=== PATIENT | male | born 1955 | race African-American/Black ===

== ENCOUNTER 2020-05-10 17:30 | Inpatient (IN) | payer MEDICAID, MEDICARE ==
[2020-05-10 18:17] LABS: VENOUS BLOOD BASE EXCESS 6.7 mmol/L; VENOUS BLOOD HCO3 35.1 mmol/L (20-32); VENOUS BLOOD PH 7.33 (7.30-7.42)
[2020-05-10 18:19] LABS: VENOUS BLOOD PCO2 68.8 mmHg (35-63)
[2020-05-10 18:20] LABS: ABSOLUTE EOSINOPHILS # (AUTO) 0.2 10^3/uL (0.0-0.6); ABSOLUTE LYMPHOCYTES (AUTO) 0.4 10^3/uL (0.5-4.7); ABSOLUTE MONOCYTES (AUTO) 0.6 10^3/uL (0.1-1.4); ABSOLUTE NEUT (AUTO) 5.1 10^3/uL (1.7-8.2); BASOPHILS % (AUTO) 0.6 % (0-2); EOSINOPHILS % (AUTO) 2.5 % (0-6); HEMATOCRIT 41.6 % (37.9-51.0); HEMOGLOBIN 13.2 g/dL (13.5-17.0); MEAN CORPUSCULAR HEMOGLOBIN 29.2 pg (27.0-33.4); MEAN CORPUSCULAR HGB CONC 31.8 g/dL (32.0-36.0); MEAN CORPUSCULAR VOLUME 92 fl (80-97); MONOCYTES % (AUTO) 9.2 % (3-13); PLATELET COUNT 153 10^3/uL (150-450); RED BLOOD COUNT 4.54 10^6/uL (4.35-5.55); RED CELL DISTRIBUTION WIDTH 17.1 % (11.5-14.0); SEGMENTED NEUTROPHILS % (AUTO) 81.7 % (42-78); TOTAL CELLS COUNTED % (AUTO) 100 %; WHITE BLOOD COUNT 6.2 10^3/uL (4.0-10.5)
[2020-05-10 18:27] LABS: INTERNATIONAL RATION (INR) 1.18; PROTHROMBIN TIME 15.2 SEC (11.4-15.4)
--- NOTE | 2020-05-10 18:41 | ER Document Report ---
ED General - General Stated Complaint: FALL/WEAKNESS Time Seen by Provider: 05/10/20 18:23 - HPI Notes: Patient is a 64-year-old male who presents to the emergency department for evaluation. He states that he was in a day bed in his living room, got up to go to the bathroom. He states his legs "just went out from underneath him." He fell to the floor. He denies hitting his head or losing consciousness. He was too weak to get up. He does have some shortness of breath. He sleeps on 3 or 4 pillows regularly. He states that he read somewhere that he should not be mixing medications, so he admits that he has not been reliably taking his medications at all. He really cannot tell me the last time he was taking any of his medications. He denies any chest pain. No fevers. He does not weigh himself regularly, states he has chronic lymphedema in his legs appear to be similar to what they have been in the past. He states he struggled on the floor for some time, sustained blistering and abrasions to his chest wall, abdomen, knees. He is unsure of his last tetanus shot. He has had a minimal cough, nonproductive. - Related Data Allergies/Adverse Reactions: Iodinated Contrast Media [IV Dye, Iodine Containing] Allergy (Verified 08/25/13 22:58) Home Medications: Losartan, Lasix, metoprolol, metformin Past Medical History - General Information source: Patient - Social History Smoking Status: Current Every Day Smoker Frequency of alcohol use: None Family History: Reviewed & Not Pertinent - Past Medical History Cardiac Medical History: Reports: Hx Congestive Heart Failure, Hx Hypertension Pulmonary Medical History: Reports: Hx COPD Endocrine Medical History: Reports: Hx Diabetes Mellitus Type 2 Musculoskeletal Medical History: Reports Other - Lymphedema Past Surgical History: Reports: Hx Abdominal Surgery - Gastric tube placement, Hx Orthopedic Surgery - Resection of right lymphedematous leg Review of Systems - Review of Systems Constitutional: See HPI EENT: No symptoms reported Cardiovascular: No symptoms reported Respiratory: See HPI Gastrointestinal: No symptoms reported Genitourinary: No symptoms reported Musculoskeletal: No symptoms reported Skin: See HPI Neurological/Psychological: No symptoms reported Physical Exam - Vital signs Vitals: Resp Pulse Ox 25 H 68 L 05/10/20 17:38 05/10/20 17:38 - Notes Notes: This is a morbidly obese 64-year-old male, who appears his stated age, in a mild to moderate distress. He is mildly tachypneic with increased work of breathing. Vital signs reviewed, please refer to chart. Head is normocephalic, atraumatic. Pupils equal round, reactive to light. Neck is supple without meningismus. Heart is regular rate and rhythm. Lungs reveal rales and markedly diminished breath sounds in the bases. Abdomen is obese, nontender, normoactive bowel sounds throughout. He has a nonreducible umbilical hernia noted. He has edema noted to the abdominal wall inferiorly. Extremities without cyanosis, clubbing. He has extensive chronic appearing lymphedema changes to bilateral lower extremities. Posterior calves are nontender. Peripheral pulses are equal. Skin is warm and dry. Multiple abrasions noted over bilateral knees. Patient is awake, alert, neurological exam is nonfocal. Course - Re-evaluation Re-evalutation: 05/10/20 18:44 Patient presents to the emergency department for evaluation. I was first made aware of this patient when I was reported a critical value for his PCO2 on VBG. He has a normal pH, I do suspect that this is somewhat chronic. I did, however, have the opportunity to see this patient chest x-ray. He has extensive pul monary edema and cardiomegaly. Given his CO2 retention, markedly increased oxygen need, increased work of breathing, I did think BiPAP is appropriate. This was ordered. I am awaiting electrolytes to determine what and how much of a diuretic is appropriate at this time. He is currently stable, we will continue to monitor. 05/10/20 20:17 Patient is improving on BiPAP. He is currently 98%. His blood pressure is normalized. His respiratory rate is 20. His chest x-ray is consistent with volume overload, his electrolytes are unremarkable, he is given IV Lasix. He does have a positive troponin, but I do strongly suspect this is a leak. However, this patient is diabetic with multiple risk factors. I will discuss this patient with Dr. Fofana, who is on-call for Dr. Hewitt. 05/10/20 20:26 Dr. Fofana will accept this patient on behalf of Dr. Hewitt. 05/10/20 21:58 Patient has diuresed significantly after receiving the Lasix. He is unable to move to urinate appropriately. A condom catheter is not slipping onto the patient at this time. He has urinated frequently, I am concerned about the possibility of worsened skin breakdown given his immobility and severe lymphedema. Greene catheter is ordered to be placed. Still awaiting bed assignment. - Vital Signs Vital signs: Temp Pulse Resp BP Pulse Ox 28 H 139/99 H 98 05/10/20 20:01 05/10/20 20:01 05/10/20 20:01 - Laboratory Result Diagrams: 05/10/20 17:55 05/10/20 18:36 Laboratory results interpreted by me: 05/10/20 05/10/20 05/10/20 17:55 17:55 18:36 Hgb 13.2 L MCHC 31.8 L RDW 17.1 H Lymph % (Auto) 6.0 L Absolute Lymphs (auto) 0.4 L Seg Neutrophils % 81.7 H VBG pCO2 68.8 H* VBG HCO3 35.1 H Carbon Dioxide 33 H Total Bilirubin 1.4 H Direct Bilirubin 0.8 H AST 76 H NT-Pro-B Natriuret Pep 05/10/20 18:36 Hgb MCHC RDW Lymph % (Auto) Absolute Lymphs (auto) Seg Neutrophils % VBG pCO2 VBG HCO3 Carbon Dioxide Total Bilirubin Direct Bilirubin AST NT-Pro-B Natriuret Pep 2130 H - Diagnostic Test Radiology reviewed: Image reviewed, Reports reviewed Radiology results interpreted by me: 05/10/20 20:17 Chest X-Ray 05/10/20 18:08 IMPRESSION: Increased interstitial and alveolar opacities throughout both lungs. Small bilateral pleural effusions. - EKG Interpretation by Me Additional EKG results interpreted by me: 05/10/20 18:45 Sinus mechanism with rate of 91 bpm. Low voltage over the precordium. Left axis deviation. Normal intervals. No acute ST changes concerning for ischemia or infarction. No old studies immediately available for comparison. Discharge - Discharge Clinical Impression: Elevated troponin Acute and chronic respiratory failure Qualifiers: Respiratory failure complication: hypoxia and hypercapnia Qualified Code(s): J96.21 - Acute and chronic respiratory failure with hypoxia Condition: Stable Disposition: ADMITTED INPATIENT Admitting Provider: Marcelina Fofana covering Unit Admitted: [facility]
[2020-05-10] MEDS ORDERED: DIPH/PERTUSS(ACELL)/TETANUS VAC/PF 0.5 ML SYR (>=10YO) IM ONE (18:42)
--- NOTE | 2020-05-10 18:44 | RADIOLOGY REPORT (SQ) ---
EXAM DESCRIPTION: CHEST SINGLE VIEW IMAGES COMPLETED DATE/TIME: 05/10/2020 6:30 pm REASON FOR STUDY: shortness of breath COMPARISON: 08/25/2013 TECHNIQUE: Single frontal radiographic view of the chest acquired. NUMBER OF VIEWS: One view. LIMITATIONS: None. FINDINGS: LUNGS AND PLEURA: No pneumothorax. Increased interstitial and alveolar opacities througho ut both lungs. Small bilateral pleural effusions. MEDIASTINUM AND HILAR STRUCTURES: Stable. HEART AND VASCULAR STRUCTURES: Similar marked cardiomegaly. BONES: No acute findings. HARDWARE: None in the chest. OTHER: No other significant finding. IMPRESSION: Increased interstitial and alveolar opacities throughout both lungs. Small bilateral p leural effusions. TECHNICAL DOCUMENTATION: JOB ID: [id number] [place]-72 2010 [employer]- All Rights Reserved Reading location - IP/workstation name: [email or web address]
[2020-05-10 19:13] LABS: ALBUMIN 3.7 g/dL (3.5-5.0); ALKALINE PHOSPHATASE 67 U/L (38-126); ANION GAP 7 (5-19); ASPARTATE AMINO TRANSFERASE 76 U/L (17-59); BILIRUBIN,DIRECT 0.8 mg/dL (0.0-0.4); BILIRUBIN,TOTAL 1.4 mg/dL (0.2-1.3); BLOOD UREA NITROGEN 14 mg/dL (7-20); CALCIUM 8.9 mg/dL (8.4-10.2); CARBON DIOXIDE 33 mmol/L (22-30); CHLORIDE 101 mmol/L (98-107); GLUCOSE 106 mg/dL (75-110); POTASSIUM 4.2 mmol/L (3.6-5.0); TOTAL PROTEIN 7.4 g/dL (6.3-8.2)
[2020-05-10] MEDS ORDERED: FUROSEMIDE INJ/PF 40 MG/4 ML SDV IV ONE (19:29)
[2020-05-10 19:31] LABS: TROPONIN I 0.145 ng/mL
[2020-05-10] MEDS ORDERED: ENOXAPARIN SODIUM INJ 40 MG/0.4 ML DISP.SYRIN SUBCUT ONE (21:45)
--- NOTE | 2020-05-10 21:55 | EKG REPORT ---
SEVERITY:- ABNORMAL ECG - SINUS RHYTHM PROBABLE LEFT ATRIAL ABNORMALITY LOW VOLTAGE THROUGHOUT BORDERLINE R WAVE PROGRESSION, ANTERIOR LEADS NONSPECIFIC T ABNORMALITIES, LATERAL LEADS : Confirmed by: Marcella Hernandez MD 10-May-2020 21:54:32
[2020-05-10 22:25] LABS: PHOSPHORUS 2.8 mg/dL (2.5-4.5)
[2020-05-10 22:42] LABS: FREE T4 (FREE THYROXINE) 1.82 ng/dL (0.78-2.19)
[2020-05-10 22:50] LABS: APPEARANCE,URINE SLIGHTLY-CLOUDY; BILIRUBIN,URINE NEGATIVE (NEGATIVE); COLOR,URINE YELLOW; GLUCOSE, URINE NEGATIVE (NEGATIVE); KETONES,URINE NEGATIVE (NEGATIVE); PROTEIN,URINE NEGATIVE (NEGATIVE); URINE SPECIFIC GRAVITY 1.015
[2020-05-10 22:56] LABS: THYROID STIMULATING HORMONE 1.01 uIU/mL (0.47-4.68)
[2020-05-10 22:57] LABS: URINE AMPHETAMINES SCREEN NEGATIVE; URINE BARBITURATES SCREEN NEGATIVE; URINE BENZODIAZEPINES SCREEN NEGATIVE; URINE COCAINE SCREEN NEGATIVE; URINE MARIJUANA (THC) SCREEN NEGATIVE; URINE METHADONE SCREEN NEGATIVE; URINE PHENCYCLIDINE SCREEN NEGATIVE
[2020-05-10 23:11] LABS: CREATINE KINASE MB 1.06 ng/mL (<4.55); TROPONIN I 0.164 ng/mL
[2020-05-11 00:50] LABS: ARTERIAL BLOOD BASE EXCESS 8.2 mmol/L; ARTERIAL BLOOD H2CO3 1.84 mmol/L (1.05-1.35); ARTERIAL BLOOD HCO3 35.5 mmol/L (20-24); ARTERIAL BLOOD PH 7.38 (7.35-7.45); ARTERIAL BLOOD PO2 84.9 mmHg (80-100); ARTERIAL BLOOD TOTAL CO2 37.4 mmol/L (23-27)
[2020-05-11 00:52] LABS: ARTERIAL BLOOD FIO2 50%
[2020-05-11 04:37] LABS: ABSOLUTE EOSINOPHILS # (AUTO) 0.1 10^3/uL (0.0-0.6); ABSOLUTE LYMPHOCYTES (AUTO) 0.6 10^3/uL (0.5-4.7); ABSOLUTE MONOCYTES (AUTO) 0.6 10^3/uL (0.1-1.4); ABSOLUTE NEUT (AUTO) 4.2 10^3/uL (1.7-8.2); BASOPHILS % (AUTO) 0.6 % (0-2); EOSINOPHILS % (AUTO) 2.4 % (0-6); HEMATOCRIT 43.5 % (37.9-51.0); HEMOGLOBIN 13.6 g/dL (13.5-17.0); LYMPHOCYTES % (AUTO) 10.2 % (13-45); MEAN CORPUSCULAR HEMOGLOBIN 29.2 pg (27.0-33.4); MEAN CORPUSCULAR HGB CONC 31.2 g/dL (32.0-36.0); MEAN CORPUSCULAR VOLUME 94 fl (80-97); MONOCYTES % (AUTO) 10.3 % (3-13); PLATELET COUNT 140 10^3/uL (150-450); RED BLOOD COUNT 4.65 10^6/uL (4.35-5.55); RED CELL DISTRIBUTION WIDTH 16.9 % (11.5-14.0); SEGMENTED NEUTROPHILS % (AUTO) 76.5 % (42-78); TOTAL CELLS COUNTED % (AUTO) 100 %; WHITE BLOOD COUNT 5.5 10^3/uL (4.0-10.5)
[2020-05-11] MEDS ORDERED: CLOPIDOGREL BISULFATE 300 MG TABLET PO ONE (04:39)
[2020-05-11] MEDS ORDERED: ASPIRIN 81 MG TABLET, CHEWABLE PO ONE (04:39)
[2020-05-11] MEDS ORDERED: METOPROLOL SUCCINATE 25 MG TAB.SR.24H PO SCH (04:45)
[2020-05-11] MEDS ORDERED: METOPROLOL SUCCINATE 25 MG TAB.SR.24H PO ONE (05:00)
[2020-05-11] MEDS ORDERED: ATORVASTATIN CALCIUM 80 MG TABLET PO ONE (05:00)
[2020-05-11 05:05] LABS: ALKALINE PHOSPHATASE 74 U/L (38-126); ANION GAP 7 (5-19); ASPARTATE AMINO TRANSFERASE 71 U/L (17-59); BILIRUBIN,DIRECT 0.9 mg/dL (0.0-0.4); BILIRUBIN,TOTAL 1.5 mg/dL (0.2-1.3); BLOOD UREA NITROGEN 13 mg/dL (7-20); CARBON DIOXIDE 35 mmol/L (22-30); CHLORIDE 102 mmol/L (98-107); CHOLESTEROL 151.56 mg/dL (0-200); GLUCOSE 114 mg/dL (75-110); POTASSIUM 4.3 mmol/L (3.6-5.0); TOTAL PROTEIN 7.7 g/dL (6.3-8.2); TRIGLYCERIDES 83 mg/dL (<150)
[2020-05-11 05:16] LABS: CREATINE KINASE MB 1.05 ng/mL (<4.55); DIRECT LDL 82 mg/dL (<100); TROPONIN I 0.134 ng/mL
[2020-05-11] MEDS: FUROSEMIDE INJ/PF 40 MG/4 ML SDV IV SCH ×2 (05:39→17:37)
[2020-05-11] MEDS ORDERED: ENOXAPARIN SODIUM INJ 40 MG/0.4 ML DISP.SYRIN SUBCUT SCH (10:00)
[2020-05-11 12:57] LABS: CREATINE KINASE MB 1.15 ng/mL (<4.55); TROPONIN I 0.105 ng/mL
--- NOTE | 2020-05-11 13:27 | PDOC H&P ---
History of Present Illness Admission Date/PCP: 05/10/20 20:41 ELIZ WARD History of Present Illness: JORDAN AVALOS is a 64 year old male he came to the emergency room last night for evaluation of fall he fell in his living room while trying to get to the bathroom, his legs just went out from underneath him there was no antecedent chest pain, no loss of consciousness he could not get himself of the floor he was transferred to the emergency room for evaluation. He has chronic huge lymphedema of both lower extremities with areas of scars, fibrosis more so on the right than the left. He normally follows with Dr. Hewitt but it seems that is not compliant with follow-up evaluation, he said whenever he is due for follow-up there is always something that prevent him from going for follow-up evaluation. 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 I saw the patient in emergency room, he is critically ill looking he also smoked cigarette a pack a day Past Medical History Cardiac Medical History: Reports: Congestive Heart Failure, Hypertension Pulmonary Medical History: Reports: Chronic Obstructive Pulmonary Disease (COPD) Endocrine Medical History: Reports: Diabetes Mellitus Type 2 Musculoskeltal Medical History: Reports: Other - Lymphedema Past Surgical History Past Surgical History: Reports: Orthopedic Surgery - Resection of right lymphedematous leg Social History Smoking Status: Current Every Day Smoker Family History Family History: Reviewed & Not Pertinent Parental Family History Reviewed: Yes Children Family History Reviewed: Yes Sibling(s) Family History Reviewed.: Yes Medication/Allergy Home Medications: Metformin HCl [Glucophage] 500 mg PO DAILY 08/25/13 Metoprolol Succinate [Toprol Xl] 25 mg PO BID 08/25/13 Pravastatin Sodium [Pravachol] 40 mg PO DAILY 08/25/13 Sulfamethoxazole/Trimethoprim [Bactrim Ds Tablet] 1 each PO BID 08/25/13 Valsartan/Hydrochlorothiazide [Diovan Hct 160-12.5 mg Tab] 1 each PO BID 08/02 12/12 Allergies/Adverse Reactions: Iodinated Contrast Media [IV Dye, Iodine Containing] Allergy (Verified 08/25/13 22:58) Review of Systems Constitutional: PRESENT: fatigue Eyes: ABSENT: visual disturbances Ears: ABSENT: hearing changes Cardiovascular: PRESENT: dyspnea on exertion Respiratory: ABSENT: cough, hemoptysis Gastrointestinal: PRESENT: abdominal pain Genitourinary: ABSENT: dysuria, hematuria Musculoskeletal: ABSENT: joint swelling Integumentary: ABSENT: rash, wounds Neurological: ABSENT: abnormal gait, abnormal speech, confusion, dizziness, focal weakness, syncope Psychiatric: ABSENT: anxiety, depression, homidical ideation, suicidal ideation Endocrine: ABSENT: cold intolerance, heat intolerance, menstrual abnormalities, polydipsia, polyuria Hematologic/Lymphatic: ABSENT: easy bleeding, easy bruising, lymphadenopathy Physical Exam Vital Signs: Temp Pulse Resp BP Pulse Ox 97.7 F 89 14 104/56 L 94 05/11/20 09:58 05/11/20 12:00 05/11/20 12:01 05/11/20 12:00 05/11/20 12:01 Intake & Output 05/10/20 05/11/20 05/12/20 06:59 06:59 06:59 Weight 199.5 kg General appearance: PRESENT: morbidly obese Eye exam: PRESENT: PERRLA Ear exam: PRESENT: normal external ear exam Neck exam: PRESENT: full ROM Respiratory exam: PRESENT: rales Cardiovascular exam: PRESENT: RRR, +S1, +S2 Vascular exam: PRESENT: normal capillary refill GI/Abdominal exam: PRESENT: normal bowel sounds, soft Rectal exam: PRESENT: deferred Extremities exam: PRESENT: pedal edema, other - Severe bilateral lymphedema of both lower extremities with scars, fibrosis, open wound more on the right than the left side Neurological exam: PRESENT: alert, CN II-XII grossly intact Psychiatric exam: PRESENT: appropriate affect, normal mood Skin exam: PRESENT: dry, intact, warm Results Laboratory Results: 05/11/20 04:25 05/11/20 04:25 05/10/20 05/10/20 05/10/20 17:55 17:55 17:55 WBC 6.2 RBC 4.54 Hgb 13.2 L Hct 41.6 MCV 92 MCH 29.2 MCHC 31.8 L RDW 17.1 H Plt Count 153 Seg Neutrophils % 81.7 H Carbonic Acid HCO3/H2CO3 Ratio ABG pH ABG pCO2 ABG pO2 ABG HCO3 ABG O2 Saturation ABG Base Excess VBG pH 7.33 VBG pCO2 68.8 H* VBG HCO3 35.1 H VBG Base Excess 6.7 FiO2 Sodium Cancelled Potassium Cancelled Chloride Cancelled Carbon Dioxide Cancelled Anion Gap Cancelled BUN Cancelled Creatinine Cancelled Est GFR ( Amer) Cancelled Est GFR (Non-Af Amer) Cancelled Glucose Cancelled Lactic Acid Calcium Cancelled Phosphorus Magnesium Total Bilirubin Cancelled AST Cancelled Alkaline Phosphatase Cancelled Ammonia Total Protein Cancelled Albumin Cancelled Triglycerides Cholesterol LDL Cholesterol Direct VLDL Cholesterol HDL Cholesterol Amylase Lipase TSH Free T4 Urine Color Urine Appearance Urine pH Ur Specific Winn Urine Protein Urine Glucose (UA) Urine Ketones Urine Blood Urine RBC (Auto) 05/10/20 05/10/20 05/10/20 17:55 18:36 18:36 WBC RBC Hgb Hct MCV MCH MCHC RDW Plt Count Seg Neutrophils % Carbonic Acid HCO3/H2CO3 Ratio ABG pH ABG pCO2 ABG pO2 ABG HCO3 ABG O2 Saturation ABG Base Excess VBG pH VBG pCO2 VBG HCO3 VBG Base Excess FiO2 Sodium 140.9 Potassium 4.2 Chloride 101 Carbon Dioxide 33 H Anion Gap 7 BUN 14 Creatinine 1.17 Est GFR ( Amer) > 60 Est GFR (Non-Af Amer) Glucose 106 Lactic Acid 1.8 Calcium 8.9 Phosphorus 2.8 Magnesium 2.6 H Total Bilirubin 1.4 H AST 76 H Alkaline Phosphatase 67 Ammonia Total Protein 7.4 Albumin 3.7 Triglycerides Cholesterol LDL Cholesterol Direct VLDL Cholesterol HDL Cholesterol Amylase 67 Lipase 132.7 TSH Free T4 Urine Color Urine Appearance Urine pH Ur Specific [place] Urine Protein Urine Glucose (UA) Urine Ketones Urine Blood Urine RBC (Auto) 05/10/20 05/10/20 05/10/20 18:36 20:45 22:05 WBC RBC Hgb Hct MCV MCH MCHC RDW Plt Count Seg Neutrophils % Carbonic Acid HCO3/H2CO3 Ratio ABG pH ABG pCO2 ABG pO2 ABG HCO3 ABG O2 Saturation ABG Base Excess VBG pH VBG pCO2 VBG HCO3 VBG Base Excess FiO2 Sodium Potassium Chloride Carbon Dioxide Anion Gap BUN Creatinine Est GFR ( Amer) Est GFR (Non-Af Amer) Glucose Lactic Acid 1.1 Calcium Phosphorus Magnesium Total Bilirubin AST Alkaline Phosphatase Ammonia Total Protein Albumin Triglycerides Cholesterol LDL Cholesterol Direct VLDL Cholesterol HDL Cholesterol Amylase Lipase TSH 1.01 Free T4 1.82 Urine Color YELLOW Urine Appearance SLIGHTLY-CLOUDY Urine pH 5.0 Ur Specific [place] 1.015 Urine Protein NEGATIVE Urine Glucose (UA) NEGATIVE Urine Ketones NEGATIVE Urine Blood NEGATIVE Urine RBC (Auto) 0 05/10/20 05/11/20 05/11/20 22:05 00:30 01:01 WBC RBC Hgb Hct MCV MCH MCHC RDW Plt Count Seg Neutrophils % Carbonic Acid 1.84 H HCO3/H2CO3 Ratio 19:1 ABG pH 7.38 ABG pCO2 61.0 H ABG pO2 84.9 ABG HCO3 35.5 H ABG O2 Saturation 96.0 ABG Base Excess 8.2 VBG pH VBG pCO2 VBG HCO3 VBG Base Excess FiO2 50% Sodium Potassium Chloride Carbon Dioxide Anion Gap BUN Creatinine Est GFR ( Amer) Est GFR (Non-Af Amer) Glucose Lactic Acid 1.9 Calcium Phosphorus Magnesium Total Bilirubin AST Alkaline Phosphatase Ammonia < 8.7 L Total Protein Albumin Triglycerides Cholesterol LDL Cholesterol Direct VLDL Cholesterol HDL Cholesterol Amylase Lipase TSH Free T4 Urine Color Urine Appearance Urine pH Ur Specific [place] Urine Protein Urine Glucose (UA) Urine Ketones Urine Blood Urine RBC (Auto) 05/11/20 05/11/20 04:25 04:25 WBC 5.5 RBC 4.65 Hgb 13.6 Hct 43.5 MCV 94 MCH 29.2 MCHC 31.2 L RDW 16.9 H Plt Count 140 L Seg Neutrophils % 76.5 Carbonic Acid HCO3/H2CO3 Ratio ABG pH ABG pCO2 ABG pO2 ABG HCO3 ABG O2 Saturation ABG Base Excess VBG pH VBG pCO2 VBG HCO3 VBG Base Excess FiO2 Sodium 144.3 Potassium 4.3 Chloride 102 Carbon Dioxide 35 H Anion Gap 7 BUN 13 Creatinine 1.28 H Est GFR ( Amer) > 60 Est GFR (Non-Af Amer) Glucose 114 H Lactic Acid Calcium 9.0 Phosphorus Magnesium Total Bilirubin 1.5 H AST 71 H Alkaline Phosphatase 74 Ammonia Total Protein 7.7 Albumin 4.0 Triglycerides 83 Cholesterol 151.56 LDL Cholesterol Direct 82 VLDL Cholesterol 17.0 HDL Cholesterol 48 Amylase Lipase TSH Free T4 Urine Color Urine Appearance Urine pH Ur Specific [place] Urine Protein Urine Glucose (UA) Urine Ketones Urine Blood Urine RBC (Auto) 05/10/20 05/10/20 05/10/20 17:55 18:36 22:20 Creatine Kinase 711 H CK-MB (CK-2) Troponin I Cancelled 0.145 NT-Pro-B Natriuret Pep 2130 H 05/10/20 05/11/20 05/11/20 22:20 04:25 04:25 Creatine Kinase 642 H CK-MB (CK-2) 1.06 1.05 Troponin I 0.164 0.134 NT-Pro-B Natriuret Pep 05/11/20 05/11/20 12:08 12:08 Creatine Kinase 427 H CK-MB (CK-2) 1.15 Troponin I 0.105 NT-Pro-B Natriuret Pep Impressions: Chest X-Ray 05/10/20 18:08 IMPRESSION: Increased interstitial and alveolar opacities throughout both lungs. Small bilateral pleural effusions. Assessment & Plan - Diagnosis (1) Acute combined systolic (congestive) and diastolic (congestive) heart failure Is this a current diagnosis for this admission?: Yes Plan: The chest x-ray demonstrated severe cardiomegaly with bilateral pulmonary vascular congestion, the B type natruretic peptide, elevated , 0 this is consistent with CHF, most likely he has combined systolic and diastolic heart failure, 2D echo will be ordered, start Entresto, beta-addison (2) Acute non-ST elevation myocardial infarction (NSTEMI) Is this a current diagnosis for this admission?: Yes Plan: He has elevated troponin, in the setting of CHF, it could be acute ND or it cou ld just be a leak from cardiomyopathy, will empirically treat for non-ST ND with dual antiplatelet therapy, Lovenox at 1 mg/kg body weight. He has multiple risk factors for atherosclerotic heart disease including smoking, diabetes, hypertension, sedentary lifestyle (3) Lymphedema of both lower extremities Is this a current diagnosis for this admission?: Yes Plan: He has huge lymphedema, he will need a pump to help with the lymphedema (4) Morbid obesity Is this a current diagnosis for this admission?: Yes - Time Time Spent: Greater than 70 Minutes Medications reviewed and adjusted accordingly: Yes Anticipated Discharge Disposition: Home, Self Care Anticipated Discharge Timeframe: within 72 hours - Inpatient Certification Based on my medical assessment, after consideration of the patient's comorbidities, presenting symptoms, or acuity I expect that the services needed warrant INPATIENT care.: Yes I certify that my determination is in accordance with my understanding of Medicare's requirements for reasonable and necessary INPATIENT services [42 CFR 412.3e].: Yes
[2020-05-11] MEDS ORDERED: GLUCAGON,HUMAN RECOMB 1 MG INJ IM PRN (13:28)
[2020-05-11] MEDS ORDERED: DEXTROSE 50%-WATER 25 GM/50 ML DISP.SYRIN IV PRN ×2 (13:28)
[2020-05-11] MEDS ORDERED: DEXTROSE 40% GEL 15 GM TUBE PO PRN ×2 (13:28)
[2020-05-11] MEDS: INSULIN LISPRO 100 UNIT/ML 3 ML VIAL SUBCUT SCH ×2 (17:33→21:54)
[2020-05-11] MEDS: ENOXAPARIN SODIUM INJ 150 MG/1 ML DISP.SYRIN SUBCUT SCH (17:38)
[2020-05-11] MEDS ORDERED: ATORVASTATIN CALCIUM 80 MG TABLET PO SCH (22:00)
[2020-05-11] MEDS: SACUBITRIL/VALSARTAN 24 MG/26 MG TABLET PO SCH (22:51)
[2020-05-12 06:46] LABS: ABSOLUTE EOSINOPHILS # (AUTO) 0.2 10^3/uL (0.0-0.6); ABSOLUTE LYMPHOCYTES (AUTO) 0.5 10^3/uL (0.5-4.7); ABSOLUTE MONOCYTES (AUTO) 0.6 10^3/uL (0.1-1.4); ABSOLUTE NEUT (AUTO) 4.3 10^3/uL (1.7-8.2); BASOPHILS % (AUTO) 0.3 % (0-2); EOSINOPHILS % (AUTO) 4.1 % (0-6); HEMATOCRIT 39.8 % (37.9-51.0); HEMOGLOBIN 12.5 g/dL (13.5-17.0); LYMPHOCYTES % (AUTO) 9.2 % (13-45); MEAN CORPUSCULAR HGB CONC 31.3 g/dL (32.0-36.0); MEAN CORPUSCULAR VOLUME 93 fl (80-97); MONOCYTES % (AUTO) 10.2 % (3-13); PLATELET COUNT 134 10^3/uL (150-450); RED CELL DISTRIBUTION WIDTH 16.8 % (11.5-14.0); SEGMENTED NEUTROPHILS % (AUTO) 76.2 % (42-78); TOTAL CELLS COUNTED % (AUTO) 100 %; WHITE BLOOD COUNT 5.7 10^3/uL (4.0-10.5)
[2020-05-12] MEDS: FUROSEMIDE INJ/PF 40 MG/4 ML SDV IV SCH ×2 (06:50→18:45)
[2020-05-12] MEDS: ENOXAPARIN SODIUM INJ 150 MG/1 ML DISP.SYRIN SUBCUT SCH ×2 (06:51→18:45)
[2020-05-12] MEDS: INSULIN LISPRO 100 UNIT/ML 3 ML VIAL SUBCUT SCH ×4 (07:53→21:58)
[2020-05-12] MEDS ORDERED: INFLUENZA QUAD (6MOS+) 2020-21 VAC 0.5 ML SYR IM ONE (08:00)
[2020-05-12] MEDS: SACUBITRIL/VALSARTAN 24 MG/26 MG TABLET PO SCH ×2 (09:58→22:04)
[2020-05-12] MEDS: METOPROLOL SUCCINATE 25 MG TAB.SR.24H PO SCH (09:58)
[2020-05-12] MEDS: ASPIRIN 81 MG TABLET, CHEWABLE PO SCH (09:58)
[2020-05-12] MEDS ORDERED: CLOPIDOGREL BISULFATE 75 MG TABLET PO SCH (10:00)
[2020-05-12 12:04] LABS: APPEARANCE,URINE CLEAR; BILIRUBIN,URINE NEGATIVE (NEGATIVE); COLOR,URINE YELLOW; GLUCOSE, URINE NEGATIVE (NEGATIVE); KETONES,URINE NEGATIVE (NEGATIVE); LEUKOCYTE ESTERASE,URINE NEGATIVE (NEGATIVE); NITRITE,URINE NEGATIVE (NEGATIVE); PROTEIN,URINE NEGATIVE (NEGATIVE); URINE SPECIFIC GRAVITY 1.008
--- NOTE | 2020-05-12 20:01 | PDOC PROGRESS REPORT ---
Subjective Progress Note for:: 05/12/20 Subjective:: Interval notes and evaluation were reviewed. Patient denied any associated chest pain, palpitation, diaphoresis, nausea, or vomiting. He reported been on the floor for several hours due to his inability to get up as well as repeated fall at home, twice before presenting to the ED. He alerted EMS on the most recent episode and was brought to the ED. Patient admitted to medication noncompliance and denial about diabetes mellitus although on Metformin prior to admission. He has been noncompliant with office follow up due to reported busy schedule. Reason For Visit: ACUTE RESPIRATORY FAILURE,CHF R/O COVID Physical Exam Vital Signs: Temp Pulse Resp BP Pulse Ox 98.3 F 79 17 126/67 H 100 05/12/20 11:30 05/12/20 15:00 05/12/20 15:00 05/12/20 15:00 05/12/20 15:00 Intake & Output 05/11/20 05/12/20 05/13/20 06:59 06:59 06:59 Intake Total 1050 Output Total 4950 3500 Balance -4950 -2450 Weight 196.4 kg General appearance: PRESENT: morbidly obese Head exam: PRESENT: atraumatic, normocephalic Eye exam: PRESENT: conjunctiva pink. ABSENT: scleral icterus Mouth exam: PRESENT: moist Respiratory exam: PRESENT: clear to auscultation elliot, decreased breath sounds - at lung bases Cardiovascular exam: PRESENT: RRR, +S1, +S2. ABSENT: diastolic murmur, rubs, systolic murmur Vascular exam: ABSENT: pallor GI/Abdominal exam: PRESENT: normal bowel sounds, soft. ABSENT: distended, guarding, mass, organolmegaly, rebound, tenderness Gentrourinary exam: PRESENT: indwelling catheter Extremities exam: PRESENT: pedal edema, other - lowewr extremities lymphedema with right >> left Musculoskeletal exam: PRESENT: deformity - related to multiple joints involvem ent with arthritis Neurological exam: PRESENT: alert, awake, oriented to person, oriented to place, oriented to time, oriented to situation, CN II-XII grossly intact. ABSENT: motor sensory deficit Skin exam: PRESENT: dry, warm, other - multiple chronic scaring on lower extremities Results Laboratory Results: 05/12/20 06:20 05/11/20 04:25 05/12/20 05/12/20 06:20 11:30 WBC 5.7 RBC 4.30 L Hgb 12.5 L Hct 39.8 MCV 93 MCH 29.0 MCHC 31.3 L RDW 16.8 H Plt Count 134 L Seg Neutrophils % 76.2 Urine Color YELLOW Urine Appearance CLEAR Urine pH 7.0 Ur Specific [place] 1.008 Urine Protein NEGATIVE Urine Glucose (UA) NEGATIVE Urine Ketones NEGATIVE Urine Blood LARGE H Urine Nitrite NEGATIVE Ur Leukocyte Esterase NEGATIVE Urine WBC (Auto) 1 Urine RBC (Auto) 15 05/10/20 05/10/20 05/10/20 17:55 18:36 22:20 Creatine Kinase 711 H CK-MB (CK-2) Troponin I Cancelled 0.145 NT-Pro-B Natriuret Pep 2130 H 05/10/20 05/11/20 05/11/20 22:20 04:25 04:25 Creatine Kinase 642 H CK-MB (CK-2) 1.06 1.05 Troponin I 0.164 0.134 NT-Pro-B Natriuret Pep 05/11/20 05/11/20 12:08 12:08 Creatine Kinase 427 H CK-MB (CK-2) 1.15 Troponin I 0.105 NT-Pro-B Natriuret Pep Impressions: Chest X-Ray 05/10/20 18:08 IMPRESSION: Increased interstitial and alveolar opacities throughout both lungs. Small bilateral pleural effusions. Assessment & Plan - Diagnosis (1) Acute and chronic respiratory failure with hypercapnia Is this a current diagnosis for this admission?: Yes Plan: Continue BiPAP support while sleeping to manage his hypoventilation issue due to his morbid obesity. (2) Acute combined systolic (congestive) and diastolic (congestive) heart failure Is this a current diagnosis for this admission?: Yes Plan: More supportive with his chest X ray findings and NT-Pro BNP level. Follow up on echocardiogram findings for further classification. (3) Elevated troponin Is this a current diagnosis for this admission?: Yes Plan: This could be a consequence of his CHF, particularly in view of his normal CKMB fraction. His elevated total CK is probable from muscle injury as a result of his falls and laying on the floor for several hours. In the absence of associated symptoms, less likely due to acute non-STEMI. I will discontinue Lovenox and Plavix use in this patient at this time. Monitor trend and his symptoms. Follow up on echocardiogram findings. (4) Lymphedema of both lower extremities Is this a current diagnosis for this admission?: Yes Plan: Maintain on supportive care. (5) Morbid obesity Is this a current diagnosis for this admission?: Yes Plan: Continue current dietary and calorie restrictions management. - Time Time Spent with patient: 25-34 minutes Level of Care: IMCU Medications reviewed and adjusted accordingly: Yes Anticipated discharge: Home with Homehealth Anticipated DC Timeframe: within 72 hours - Inpatient Certification Based on my medical assessment, after consideration of the patient's comorbidities, presenting symptoms, or acuity I expect that the services needed warrant INPATIENT care.: Yes I certify that my determination is in accordance with my understanding of Medicare's requirements for reasonable and necessary INPATIENT services [42 CFR 412.3e].: Yes Medical Necessity: Significant Comorbidiites Make Outpatient Treatment Too Risky, Need Close Monitoring Due to Risk of Patient Decompensation, Need For Continuous Telemetry Monitoring, Risk of Complication if Not Cared For in Hospital, Risk of Diagnosis Which Will Require Inpatient Eval/Care/Monitoring 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
--- NOTE | 2020-05-12 21:01 | XCELERA REPORT ---
[address] [address] Transthoracic Echocardiogram Report Name: JORDAN AVALOS Age: 64 yrs Gender: Male : 1955 Patient Status: Inpatient Patient Location: [address] [place] [address] Study Date: 05/12/2020 09:04 AM Procedure: A complete two-dimensional transthoracic echocardiogram was performed (2D, M-mode, spectral and color flow Doppler). The study was technically difficult with many images being suboptimal in quality. Reason For Study: ? [place] Ordering Physician: GALINA FOX Performed By: Diana Rosenbaum Interpretation Summary LEFT VENTRICLE: LV Systolic function: LVEF is felt to be severely depressed. Best estimate is approximately LVEF is 35 %. LV Diastolic Function: Grade II diastolic dysfunction noted. Wall motion: diffuse hypokinesia noted. Regional wall motion cannot be accurately commented upon. Left ventricular chamber size: mildly dilated. Left ventricular wall thickness: is increased indicative of Mild LVH. RIGHT VENTRICLE: RV systolic function: is felt to be within normal limit. Right Ventricle Size: mildly dilated. LEFT ATRIUM size: moderately dilated. RIGHT ATRIUM size: moderately dilated. INTER ATRIAL SEPTUM: No definite atrial septal defect noted however a small PFO could be missed. AORTIC ROOT: seems to be within normal limits. ASCENDING AORTA: is not well visualized. INFERIOR VENA CAVA: was not well visualized. VALVES: MITRAL VALVE: Leaflets are mildly thickened. Mobility seems to be within normal limits. Mitral Regurgitation: mild mitral regurgitation is noted. Mitral Stenosis: No mitral stenosis noted. Mitral valve prolapse: none noted. AORTIC VALVE: seems to be trileaflet with mild thickening but adequate excursion. Aortic stenosis: No aortic stenosis noted. Aortic regurgitation: trace aortic incompetence noted. TRICUSPID VALVE: mobility and structures within normal limit. Tricuspid stenosis: no tricuspid stenosis noted. Tricuspid regurgitation: mild tricuspid regurgitation noted. Estimated RVSP: best estimated at approximately 45 mmHg consistent with mild to moderate pulmonary hypertension . PULMONARY VALVE: was not well visualized but no significant abnormalities suspected. Pulmonary stenosis: no pulmonary stenosis noted. Pulmonary regurgitation: no significant pulmonary regurgitation noted. MASSES AND THROMBUS: No definite intracardiac thrombus or masses are noted. PERICARDIUM: No pericardial effusion was noted. IMPRESSION: 1. Severely depressed LVEF best estimate being approximately 35%. 2. Mild LVH noted. 3. Grade II [mild] Diastolic Dysfunction noted. 4. Mild mitral, mild tricuspid and trace aortic regurgitation noted. 5. Four chamber dilatation noted as described above. 6. Mild to moderate pulmonary hypertension noted. 7. May consider further evaluation with cardiac CTA, cardiac MRI et cetera if clinically indicated. MMode/2D Measurements & Calculations RVDd: 3.2 cm LVIDd: 6.2 cm FS: 9.3 % Ao root diam: 3.2 cm IVSd: 1.5 cm LVIDs: 5.6 cm EDV(Teich): 194.3 ml Ao root area: 8.2 cm2 LVPWd: 1.4 cm ESV(Teich): 155.6 ml EF(Teich): 19.9 % Doppler Measurements & Calculations MV E max omar: MV dec slope: Ao V2 max: LV V1 max P.1 cm/sec 126.2 cm/sec 3.8 mmHg MV A max omar: 530.6 cm/sec2 Ao max P.4 mmHgLV V1 max: 84.8 cm/sec MV dec time: 0.14 sec 97.2 cm/sec MV E/A: 0.86 PA V2 max: PI end-d omar: TR max omar: 169.5 cm/sec 98.1 cm/sec 329.5 cm/sec PA max PG: TR max P.6 mmHg 43.4 mmHg : GALINA FOX Shyamal
[2020-05-12] MEDS: HEPARIN SOD (PORCINE) 5,000 UNIT/ML 1 ML VIAL SUBCUT SCH (22:04)
[2020-05-12] MEDS: ATORVASTATIN CALCIUM 20 MG TABLET PO SCH (22:04)
[2020-05-13] MEDS: PANTOPRAZOLE SODIUM 40 MG TABLET.DR PO SCH (05:24)
[2020-05-13] MEDS: FUROSEMIDE INJ/PF 40 MG/4 ML SDV IV SCH ×2 (05:24→18:54)
[2020-05-13] MEDS: HEPARIN SOD (PORCINE) 5,000 UNIT/ML 1 ML VIAL SUBCUT SCH ×3 (05:29→22:04)
[2020-05-13 06:33] LABS: ABSOLUTE EOSINOPHILS # (AUTO) 0.3 10^3/uL (0.0-0.6); ABSOLUTE LYMPHOCYTES (AUTO) 0.6 10^3/uL (0.5-4.7); ABSOLUTE MONOCYTES (AUTO) 0.6 10^3/uL (0.1-1.4); ABSOLUTE NEUT (AUTO) 3.7 10^3/uL (1.7-8.2); BASOPHILS % (AUTO) 0.7 % (0-2); EOSINOPHILS % (AUTO) 5.3 % (0-6); HEMATOCRIT 40.7 % (37.9-51.0); HEMOGLOBIN 12.7 g/dL (13.5-17.0); LYMPHOCYTES % (AUTO) 10.9 % (13-45); MEAN CORPUSCULAR HEMOGLOBIN 28.6 pg (27.0-33.4); MEAN CORPUSCULAR HGB CONC 31.2 g/dL (32.0-36.0); MEAN CORPUSCULAR VOLUME 92 fl (80-97); MONOCYTES % (AUTO) 11.5 % (3-13); PLATELET COUNT 135 10^3/uL (150-450); RED BLOOD COUNT 4.44 10^6/uL (4.35-5.55); RED CELL DISTRIBUTION WIDTH 16.6 % (11.5-14.0); SEGMENTED NEUTROPHILS % (AUTO) 71.6 % (42-78); TOTAL CELLS COUNTED % (AUTO) 100 %; WHITE BLOOD COUNT 5.2 10^3/uL (4.0-10.5)
[2020-05-13 06:55] LABS: ALBUMIN 3.1 g/dL (3.5-5.0); ALKALINE PHOSPHATASE 59 U/L (38-126); ANION GAP 5 (5-19); ASPARTATE AMINO TRANSFERASE 36 U/L (17-59); BILIRUBIN,DIRECT 0.5 mg/dL (0.0-0.4); BILIRUBIN,TOTAL 1.2 mg/dL (0.2-1.3); BLOOD UREA NITROGEN 16 mg/dL (7-20); CALCIUM 8.8 mg/dL (8.4-10.2); CARBON DIOXIDE 37 mmol/L (22-30); CHLORIDE 96 mmol/L (98-107); CREATINE KINASE 125 U/L (55-170); GLUCOSE 99 mg/dL (75-110); POTASSIUM 3.8 mmol/L (3.6-5.0); TOTAL PROTEIN 6.4 g/dL (6.3-8.2)
[2020-05-13 07:22] LABS: CREATINE KINASE MB 0.66 ng/mL (<4.55); TROPONIN I 0.063 ng/mL
[2020-05-13] MEDS: INSULIN LISPRO 100 UNIT/ML 3 ML VIAL SUBCUT SCH ×4 (08:41→22:04)
[2020-05-13 09:39] LABS: APPEARANCE,URINE CLEAR; BILIRUBIN,URINE NEGATIVE (NEGATIVE); COLOR,URINE COLORLESS; GLUCOSE, URINE NEGATIVE (NEGATIVE); KETONES,URINE NEGATIVE (NEGATIVE); LEUKOCYTE ESTERASE,URINE NEGATIVE (NEGATIVE); NITRITE,URINE NEGATIVE (NEGATIVE); PROTEIN,URINE NEGATIVE (NEGATIVE); URINE SPECIFIC GRAVITY 1.004; UROBILINOGEN,URINE NEGATIVE mg/dL (<2.0)
[2020-05-13] MEDS: ASPIRIN 81 MG TABLET, CHEWABLE PO SCH (09:56)
[2020-05-13] MEDS: SACUBITRIL/VALSARTAN 24 MG/26 MG TABLET PO SCH ×2 (09:57→22:04)
[2020-05-13] MEDS: METOPROLOL SUCCINATE 25 MG TAB.SR.24H PO SCH (09:57)
[2020-05-13] MEDS: ATORVASTATIN CALCIUM 20 MG TABLET PO SCH (22:04)
[2020-05-14] MEDS: PANTOPRAZOLE SODIUM 40 MG TABLET.DR PO SCH (05:40)
[2020-05-14] MEDS: FUROSEMIDE INJ/PF 40 MG/4 ML SDV IV SCH ×2 (05:40→17:43)
[2020-05-14] MEDS: HEPARIN SOD (PORCINE) 5,000 UNIT/ML 1 ML VIAL SUBCUT SCH ×3 (05:40→22:09)
[2020-05-14 07:01] LABS: APPEARANCE,URINE SLIGHTLY-CLOUDY; BILIRUBIN,URINE NEGATIVE (NEGATIVE); COLOR,URINE YELLOW; GLUCOSE, URINE NEGATIVE (NEGATIVE); KETONES,URINE NEGATIVE (NEGATIVE); LEUKOCYTE ESTERASE,URINE SMALL (NEGATIVE); NITRITE,URINE NEGATIVE (NEGATIVE); PROTEIN,URINE 100 mg/dL (NEGATIVE); URINE SPECIFIC GRAVITY 1.012; UROBILINOGEN,URINE NEGATIVE mg/dL (<2.0)
[2020-05-14 07:43] LABS: ANION GAP 7 (5-19); BLOOD UREA NITROGEN 16 mg/dL (7-20); CALCIUM 9.5 mg/dL (8.4-10.2); CARBON DIOXIDE 38 mmol/L (22-30); CHLORIDE 93 mmol/L (98-107); GLUCOSE 108 mg/dL (75-110)
[2020-05-14 07:46] LABS: HEMATOCRIT 43.1 % (37.9-51.0); HEMOGLOBIN 13.9 g/dL (13.5-17.0); MEAN CORPUSCULAR HEMOGLOBIN 29.1 pg (27.0-33.4); MEAN CORPUSCULAR HGB CONC 32.3 g/dL (32.0-36.0); MEAN CORPUSCULAR VOLUME 90 fl (80-97); PLATELET COUNT 150 10^3/uL (150-450); RED BLOOD COUNT 4.79 10^6/uL (4.35-5.55); RED CELL DISTRIBUTION WIDTH 16.5 % (11.5-14.0)
[2020-05-14] MEDS: INSULIN LISPRO 100 UNIT/ML 3 ML VIAL SUBCUT SCH ×4 (08:08→22:09)
--- NOTE | 2020-05-14 09:41 | PDOC PROGRESS REPORT ---
Subjective Progress Note for:: 05/13/20 Subjective:: Patient denied chest pain, palpitation, or difficulty with breathing. No abdominal pain, nausea, or vomiting. He remain on BiPAP support while sleeping. No fever or chills. Reason For Visit: ACUTE RESPIRATORY FAILURE,CHF R/O COVID Physical Exam Vital Signs: Temp Pulse Resp BP Pulse Ox 97.9 F 82 13 131/72 H 87 L 05/13/20 07:44 05/13/20 07:44 05/13/20 07:44 05/13/20 07:44 05/13/20 09:31 Intake & Output 05/12/20 05/13/20 05/14/20 06:59 06:59 06:59 Intake Total 1590 Output Total 4950 8900 Balance -4950 -7310 Weight 196.4 kg 190.7 kg Physical Exam: General appearance: PRESENT: morbidly obese Head exam: PRESENT: atraumatic, normocephalic Eye exam: PRESENT: conjunctiva pink. ABSENT: pallor, sclera icterus Mouth exam: PRESENT: moist Respiratory exam: PRESENT: clear to auscultation elliot, decreased breath sounds - at lung bases Cardiovascular exam: PRESENT: RRR, +S1, +S2. ABSENT: diastolic murmur, rubs, systolic murmur GI/Abdominal exam: PRESENT: normal bowel sounds, soft. ABSENT: distended, gu arding, mass, organomegaly, rebound, tenderness Genitourinary exam: PRESENT: indwelling catheter Extremities exam: PRESENT: pedal edema, other - lower extremities lymphedema with right >> left Musculoskeletal exam: PRESENT: deformity - related to multiple joints involvement with arthritis Neurological exam: PRESENT: alert, awake, oriented to person, oriented to place, oriented to time, oriented to situation, CN II-XII grossly intact. ABSENT: motor sensory deficit Skin exam: PRESENT: dry, warm, other - multiple chronic scaring on lower extremities Results Laboratory Results: 05/13/20 05:51 05/13/20 05:51 05/12/20 05/13/20 05/13/20 11:30 05:51 05:51 WBC 5.2 RBC 4.44 Hgb 12.7 L Hct 40.7 MCV 92 MCH 28.6 MCHC 31.2 L RDW 16.6 H Plt Count 135 L Seg Neutrophils % 71.6 Sodium 138.0 Potassium 3.8 Chloride 96 L Carbon Dioxide 37 H Anion Gap 5 BUN 16 Creatinine 1.11 Est GFR ( Amer) > 60 Glucose 99 Calcium 8.8 Total Bilirubin 1.2 AST 36 Alkaline Phosphatase 59 Total Protein 6.4 Albumin 3.1 L Urine Color YELLOW Urine Appearance CLEAR Urine pH 7.0 Ur Specific [place] 1.008 Urine Protein NEGATIVE Urine Glucose (UA) NEGATIVE Urine Ketones NEGATIVE Urine Blood LARGE H Urine Nitrite NEGATIVE Ur Leukocyte Esterase NEGATIVE Urine WBC (Auto) 1 Urine RBC (Auto) 15 05/13/20 09:00 WBC RBC Hgb Hct MCV MCH MCHC RDW Plt Count Seg Neutrophils % Sodium Potassium Chloride Carbon Dioxide Anion Gap BUN Creatinine Est GFR ( Amer) Glucose Calcium Total Bilirubin AST Alkaline Phosphatase Total Protein Albumin Urine Color COLORLESS Urine Appearance CLEAR Urine pH 8.0 Ur Specific [place] 1.004 Urine Protein NEGATIVE Urine Glucose (UA) NEGATIVE Urine Ketones NEGATIVE Urine Blood LARGE H Urine Nitrite NEGATIVE Ur Leukocyte Esterase NEGATIVE Urine WBC (Auto) 1 Urine RBC (Auto) 27 05/10/20 05/10/20 05/10/20 17:55 18:36 22:20 Creatine Kinase 711 H CK-MB (CK-2) Troponin I Cancelled 0.145 NT-Pro-B Natriuret Pep 2130 H 05/10/20 05/11/20 05/11/20 22:20 04:25 04:25 Creatine Kinase 642 H CK-MB (CK-2) 1.06 1.05 Troponin I 0.164 0.134 NT-Pro-B Natriuret Pep 05/11/20 05/11/20 05/13/20 12:08 12:08 05:51 Creatine Kinase 427 H 125 CK-MB (CK-2) 1.15 Troponin I 0.105 NT-Pro-B Natriuret Pep 05/13/20 05:51 Creatine Kinase CK-MB (CK-2) 0.66 Troponin I 0.063 NT-Pro-B Natriuret Pep Impressions: Chest X-Ray 05/10/20 18:08 IMPRESSION: Increased interstitial and alveolar opacities throughout both lungs. Small bilateral pleural effusions. Assessment & Plan - Diagnosis (1) Acute and chronic respiratory failure with hypercapnia Is this a current diagnosis for this admission?: Yes (2) Acute combined systolic (congestive) and diastolic (congestive) heart failure Is this a current diagnosis for this admission?: Yes (3) Elevated troponin Is this a current diagnosis for this admission?: Yes (4) Lymphedema of both lower extremities Is this a current diagnosis for this admission?: Yes (5) Morbid obesity Is this a current diagnosis for this admission?: Yes - Time Time Spent with patient: 25-34 minutes Level of Care: IMCU Medications reviewed and adjusted accordingly: Yes Anticipated discharge: Home with Homehealth Anticipated DC Timeframe: within 72 hours - Inpatient Certification Based on my medical assessment, after consideration of the patient's comorbidities, presenting symptoms, or acuity I expect that the services needed warrant INPATIENT care.: Yes I certify that my determination is in accordance with my understanding of Medic are's requirements for reasonable and necessary INPATIENT services [42 CFR 412.3e].: Yes Medical Necessity: Significant Comorbidiites Make Outpatient Treatment Too Risky, Need Close Monitoring Due to Risk of Patient Decompensation, Need For Continuous Telemetry Monitoring, Risk of Complication if Not Cared For in Hospital, Risk of Diagnosis Which Will Require Inpatient Eval/Care/Monitoring 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 Obtain BMP, NT-Pro BNP, and CBC with diff in AM.
[2020-05-14] MEDS: SACUBITRIL/VALSARTAN 24 MG/26 MG TABLET PO SCH ×2 (10:05→22:08)
[2020-05-14] MEDS: ASPIRIN 81 MG TABLET, CHEWABLE PO SCH (10:05)
[2020-05-14] MEDS: METOPROLOL SUCCINATE 25 MG TAB.SR.24H PO SCH (10:05)
[2020-05-14] MEDS: ATORVASTATIN CALCIUM 20 MG TABLET PO SCH (22:08)
[2020-05-15] MEDS: PANTOPRAZOLE SODIUM 40 MG TABLET.DR PO SCH (05:34)
[2020-05-15] MEDS: FUROSEMIDE INJ/PF 40 MG/4 ML SDV IV SCH ×2 (05:34→17:37)
[2020-05-15] MEDS: HEPARIN SOD (PORCINE) 5,000 UNIT/ML 1 ML VIAL SUBCUT SCH ×3 (05:35→21:23)
[2020-05-15] MEDS: INSULIN LISPRO 100 UNIT/ML 3 ML VIAL SUBCUT SCH ×4 (08:20→21:24)
[2020-05-15] MEDS: SACUBITRIL/VALSARTAN 24 MG/26 MG TABLET PO SCH ×2 (09:59→21:23)
[2020-05-15] MEDS: METOPROLOL SUCCINATE 25 MG TAB.SR.24H PO SCH (09:59)
[2020-05-15] MEDS: ASPIRIN 81 MG TABLET, CHEWABLE PO SCH (09:59)
--- NOTE | 2020-05-15 18:00 | PDOC PROGRESS REPORT ---
Subjective Progress Note for:: 05/14/20 Subjective:: Patient reported improvement in his breathing. No chest pain. No abdominal pain, nausea, or vomiting. No fever or chills. Reason For Visit: ACUTE RESPIRATORY FAILURE,CHF R/O COVID Physical Exam Vital Signs: Temp Pulse Resp BP Pulse Ox 97.3 F 84 15 126/72 H 92 05/14/20 11:12 05/14/20 14:00 05/14/20 11:12 05/14/20 11:12 05/14/20 11:12 Intake & Output 05/13/20 05/14/20 05/15/20 06:59 06:59 06:59 Intake Total 1590 1049 1513 Output Total 8900 8925 1505 Balance -0189 -3235 8 Weight 190.7 kg 168.8 kg Physical Exam: General appearance: PRESENT: morbidly obese Head exam: PRESENT: atraumatic, normocephalic Eye exam: PRESENT: conjunctiva pink. ABSENT: pallor, sclera icterus Mouth exam: PRESENT: moist Respiratory exam: PRESENT: clear to auscultation elliot, decreased breath sounds - at lung bases Cardiovascular exam: PRESENT: RRR, +S1, +S2. ABSENT: diastolic murmur, rubs, systolic murmur GI/Abdominal exam: PRESENT: normal bowel sounds, soft. ABSENT: distended, guarding, mass, organomegaly, rebound, tenderness Genitourinary exam: PRESENT: indwelling catheter Extremities exam: PRESENT: pedal edema, other - lower extremities lymphedema with right >> left Musculoskeletal exam: PRESENT: deformity - related to multiple joints involvement with arthritis Neurological exam: PRESENT: alert, awake, oriented to person, oriented to place, oriented to time, oriented to situation, CN II-XII grossly intact. ABSENT: motor sensory deficit Skin exam: PRESENT: dry, warm, other - multiple chronic scaring on lower extremities Results Laboratory Results: 05/14/20 06:35 05/14/20 06:35 05/14/20 05/14/20 05/14/20 05:43 06:35 06:35 WBC 5.0 RBC 4.79 Hgb 13.9 Hct 43.1 MCV 90 MCH 29.1 MCHC 32.3 RDW 16.5 H Plt Count 150 Sodium 137.7 Potassium 4.0 Chloride 93 L Carbon Dioxide 38 H Anion Gap 7 BUN 16 Creatinine 1.02 Est GFR ( Amer) > 60 Glucose 108 Calcium 9.5 Urine Color YELLOW Urine Appearance SLIGHTLY-CLOUDY Urine pH 9.0 Ur Specific [place] 1.012 Urine Protein 100 H Urine Glucose (UA) NEGATIVE Urine Ketones NEGATIVE Urine Blood LARGE H Urine Nitrite NEGATIVE Ur Leukocyte Esterase SMALL H Urine WBC (Auto) 27 Urine RBC (Auto) >182 05/10/20 20:45 Clean Catch Midstream Urine Culture - Final Proteus Mirabilis Staph Coagulase Negative 05/10/20 05/10/20 05/10/20 17:55 18:36 22:20 Creatine Kinase 711 H CK-MB (CK-2) Troponin I Cancelled 0.145 NT-Pro-B Natriuret Pep 2130 H 05/10/20 05/11/20 05/11/20 22:20 04:25 04:25 Creatine Kinase 642 H CK-MB (CK-2) 1.06 1.05 Troponin I 0.164 0.134 NT-Pro-B Natriuret Pep 05/11/20 05/11/20 05/13/20 12:08 12:08 05:51 Creatine Kinase 427 H 125 CK-MB (CK-2) 1.15 Troponin I 0.105 NT-Pro-B Natriuret Pep 05/13/20 05/14/20 05:51 06:35 Creatine Kinase CK-MB (CK-2) 0.66 Troponin I 0.063 NT-Pro-B Natriuret Pep 1220 H Impressions: Chest X-Ray 05/10/20 18:08 IMPRESSION: Increased interstitial and alveolar opacities throughout both lungs. Small bilateral pleural effusions. Assessment & Plan - Diagnosis (1) Acute and chronic respiratory failure with hypercapnia Is this a current diagnosis for this admission?: Yes (2) Acute combined systolic (congestive) and diastolic (congestive) heart failure Is this a current diagnosis for this admission?: Yes (3) Elevated troponin Is this a current diagnosis for this admission?: Yes (4) Lymphedema of both lower extremities Is this a current diagnosis for this admission?: Yes (5) Morbid obesity Is this a current diagnosis for this admission?: Yes - Time Time Spent with patient: 25-34 minutes Level of Care: IMCU Medications reviewed and adjusted accordingly: Yes Anticipated discharge: Home with Homehealth Anticipated DC Timeframe: within 72 hours - Inpatient Certification Based on my medical assessment, after consideration of the patient's comorbidities, presenting symptoms, or acuity I expect that the services needed warrant INPATIENT care.: Yes I certify that my determination is in accordance with my understanding of Medicare's requirements for reasonable and necessary INPATIENT services [42 CFR 412.3e].: Yes Medical Necessity: Significant Comorbidiites Make Outpatient Treatment Too Risky, Need Close Monitoring Due to Risk of Patient Decompensation, Need For Continuous Telemetry Monitoring, Risk of Complication if Not Cared For in Hospital, Risk of Diagnosis Which Will Require Inpatient Eval/Care/Monitoring Post Hospital Care: D/C Litigation Paralegal 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
--- NOTE | 2020-05-15 18:10 | PDOC PROGRESS REPORT ---
Subjective Progress Note for:: 05/15/20 Subjective:: No chest pain or difficulty with breathing. No abdominal pain, nausea, or vomiting. No fever or chills. Reason For Visit: ACUTE RESPIRATORY FAILURE,CHF R/O COVID Physical Exam Vital Signs: Temp Pulse Resp BP Pulse Ox 97.9 F 91 16 113/68 99 05/15/20 12:57 05/15/20 14:00 05/15/20 12:57 05/15/20 12:57 05/15/20 16:00 Intake & Output 05/14/20 05/15/20 05/16/20 06:59 06:59 06:59 Intake Total 1049 2513 1404 Output Total 8925 5505 1720 Balance -9483 -1672 -316 Weight 168.8 kg 173.6 kg Physical Exam: General appearance: PRESENT: morbidly obese Head exam: PRESENT: atraumatic, normocephalic Eye exam: PRESENT: conjunctiva pink. ABSENT: pallor, sclera icterus Mouth exam: PRESENT: moist Respiratory exam: PRESENT: clear to auscultation elliot, decreased breath sounds - at lung bases Cardiovascular exam: PRESENT: RRR, +S1, +S2. ABSENT: diastolic murmur, rubs, systolic murmur GI/Abdominal exam: PRESENT: normal bowel sounds, soft. ABSENT: distended, guarding, mass, organomegaly, rebound, tenderness Genitourinary exam: PRESENT: indwelling catheter Extremities exam: PRESENT: pedal edema, other - lower extremities lymphedema with right >> left Musculoskeletal exam: PRESENT: deformity - related to multiple joints involvement with arthritis Neurological exam: PRESENT: alert, awake, oriented to person, oriented to place, oriented to time, oriented to situation, CN II-XII grossly intact. ABSENT: motor sensory deficit Skin exam: PRESENT: dry, warm, other - multiple chronic scaring on lower extremities Results Laboratory Results: 05/14/20 06:35 05/14/20 06:35 05/10/20 05/10/20 05/10/20 17:55 18:36 22:20 Creatine Kinase 711 H CK-MB (CK-2) Troponin I Cancelled 0.145 NT-Pro-B Natriuret Pep 2130 H 05/10/20 05/11/20 05/11/20 22:20 04:25 04:25 Creatine Kinase 642 H CK-MB (CK-2) 1.06 1.05 Troponin I 0.164 0.134 NT-Pro-B Natriuret Pep 05/11/20 05/11/20 05/13/20 12:08 12:08 05:51 Creatine Kinase 427 H 125 CK-MB (CK-2) 1.15 Troponin I 0.105 NT-Pro-B Natriuret Pep 05/13/20 05/14/20 05:51 06:35 Creatine Kinase CK-MB (CK-2) 0.66 Troponin I 0.063 NT-Pro-B Natriuret Pep 1220 H Impressions: Chest X-Ray 05/10/20 18:08 IMPRESSION: Increased interstitial and alveolar opacities throughout both lungs. Small bilateral pleural effusions. Assessment & Plan - Diagnosis (1) Acute and chronic respiratory failure with hypercapnia Is this a current diagnosis for this admission?: Yes (2) Acute combined systolic (congestive) and diastolic (congestive) heart failure Is this a current diagnosis for this admission?: Yes (3) Elevated troponin Is this a current diagnosis for this admission?: Yes (4) Lymphedema of both lower extremities Is this a current diagnosis for this admission?: Yes (5) Morbid obesity Is this a current diagnosis for this admission?: Yes - Time Time Spent with patient: 25-34 minutes Level of Care: IMCU Medications reviewed and adjusted accordingly: Yes Anticipated discharge: Home with Homehealth Anticipated DC Timeframe: within 48 hours - Inpatient Certification Based on my medical assessment, after consideration of the patient's comorbidities, presenting symptoms, or acuity I expect that the services needed warrant INPATIENT care.: Yes I certify that my determination is in accordance with my understanding of Medicare's requirements for reasonable and necessary INPATIENT services [42 CFR 412.3e].: Yes Medical Necessity: Significant Comorbidiites Make Outpatient Treatment Too Risky, Need Close Monitoring Due to Risk of Patient Decompensation, Need For Continuous Telemetry Monitoring, Risk of Complication if Not Cared For in Hospital, Risk of Diagnosis Which Will Require Inpatient Eval/Care/Monitoring Post Hospital 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 Continue all current medication management. Possible d/c tomorrow discussed with patient at bedside and he is in agreement.
[2020-05-15] MEDS: ATORVASTATIN CALCIUM 20 MG TABLET PO SCH (21:23)
[2020-05-16] MEDS: FUROSEMIDE INJ/PF 40 MG/4 ML SDV IV SCH ×2 (06:06→21:14)
[2020-05-16] MEDS: PANTOPRAZOLE SODIUM 40 MG TABLET.DR PO SCH (06:06)
[2020-05-16] MEDS: HEPARIN SOD (PORCINE) 5,000 UNIT/ML 1 ML VIAL SUBCUT SCH ×3 (06:06→21:06)
[2020-05-16] MEDS: INSULIN LISPRO 100 UNIT/ML 3 ML VIAL SUBCUT SCH ×4 (08:21→21:07)
[2020-05-16] MEDS: SACUBITRIL/VALSARTAN 24 MG/26 MG TABLET PO SCH ×2 (10:03→21:14)
[2020-05-16] MEDS: ASPIRIN 81 MG TABLET, CHEWABLE PO SCH (10:03)
[2020-05-16] MEDS: METOPROLOL SUCCINATE 25 MG TAB.SR.24H PO SCH (10:03)
[2020-05-16 10:57] LABS: HEMATOCRIT 44.9 % (37.9-51.0); HEMOGLOBIN 14.4 g/dL (13.5-17.0); MEAN CORPUSCULAR HEMOGLOBIN 29.1 pg (27.0-33.4); MEAN CORPUSCULAR HGB CONC 32.2 g/dL (32.0-36.0); MEAN CORPUSCULAR VOLUME 91 fl (80-97); PLATELET COUNT 162 10^3/uL (150-450); RED BLOOD COUNT 4.96 10^6/uL (4.35-5.55); RED CELL DISTRIBUTION WIDTH 16.5 % (11.5-14.0); WHITE BLOOD COUNT 4.9 10^3/uL (4.0-10.5)
[2020-05-16 14:24] LABS: APPEARANCE,URINE CLEAR; BILIRUBIN,URINE NEGATIVE (NEGATIVE); COLOR,URINE YELLOW; GLUCOSE, URINE NEGATIVE (NEGATIVE); KETONES,URINE NEGATIVE (NEGATIVE); LEUKOCYTE ESTERASE,URINE SMALL (NEGATIVE); NITRITE,URINE NEGATIVE (NEGATIVE); PROTEIN,URINE NEGATIVE (NEGATIVE); URINE SPECIFIC GRAVITY 1.008
--- NOTE | 2020-05-16 15:55 | PDOC DISCHARGE SUMMARY ---
Impression - Admit/DC Date/PCP Admission Date/Primary Care Provider: 05/10/20 20:41 GOPAL WALLACE MD Discharge Date: 05/16/20 - Discharge Diagnosis (1) Acute and chronic respiratory failure with hypercapnia Is this a current diagnosis for this admission?: Yes (2) Acute combined systolic (congestive) and diastolic (congestive) heart failure Is this a current diagnosis for this admission?: Yes (3) Elevated troponin Is this a current diagnosis for this admission?: Yes (4) Lymphedema of both lower extremities Is this a current diagnosis for this admission?: Yes (5) Morbid obesity Is this a current diagnosis for this admission?: Yes - Assessment Summary: Patient was admitted following recurrent fall at home and concern for possible CAD event due to elevation of his total CK and elevated Troponin. His NT-Pro BNP was elevated but his CK-MB was within normal limit on serial measurement. There was associated hypercapnia upon presentation, related to his morbid obesity and associated hypoventilation syndrome. His echocardiogram revealed suboptimal LVEF at about 35 % with grade ll diastolic dysfunction qualifying patient with combines systolic and diastolic CHF. He was managed with IV furosemide and GDMT for CHF. His NT-Pro BNP did show downward trend with treatment. His urine culture did not reveal any significant colon count infection to warrant treatment. Patient tested negative for COVID-19 viral test. He had Greene catheter in situ until a day prior to discharge and was voiding adequately before discharge home. He will be discharged home today on all his current medication management and follow up in the office as instructed upon discharge. - Additional Information Resuscitation Status: Full Code Discharge Diet: Cardiac Discharge Activity: Activity As Tolerated, Balance Activity w/Rest, Weigh Daily Referrals: OSCAR FRITZ PA [Primary Care Provider] - (Wrong PCP) GOPAL WALLACE MD [ACTIVE STAFF] - Home Medications: Metformin HCl [Glucophage] 500 mg PO BID 08/25/13 Furosemide [Lasix 40 mg Tablet] 40 mg PO DAILY 05/12/20 Losartan Potassium [Cozaar 50 mg Tablet] 50 mg PO DAILY 05/12/20 Metoprolol Tartrate [Lopressor 25 mg Tablet] 25 mg PO Q12 05/12/20 History of Present Illiness History of Present Illness: JORDAN AVALOS is a 64 year old male he came to the emergency room last night for evaluation of fall he fell in his living room while trying to get to the bathroom, his legs just went out from underneath him there was no antecedent chest pain, no loss of consciousness he could not get himself of the floor he was transferred to the emergency room for evaluation. He has chronic huge lymphedema of both lower extremities with areas of scars, fibrosis more so on the right than the left. He normally follows with Dr. Wallace but it seems that is not compliant with follow-up evaluation, he said whenever he is due for follow-up there is always something that prevent him from going for follow-up evaluation. 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 I saw the patient in emergency room, he is critically ill looking he also smoked cigarette a pack a day Hospital Course Hospital Course: Patient was admitted following recurrent fall at home and concern for possible CAD event due to elevation of his total CK and elevated Troponin. His NT-Pro BNP was elevated but his CK-MB was within normal limit on serial measurement. There was associated hypercapnia upon presentation, related to his morbid obesity and associated hypoventilation syndrome. His echocardiogram revealed suboptimal LVEF at about 35 % with grade ll diastolic dysfunction qualifying patient with combines systolic and diastolic CHF. He was managed with IV furosemide and GDMT for CHF. His NT-Pro BNP did show downward trend with treatment. His urine culture did not reveal any significant colon count infection to warrant treatment. Patient tested negative for COVID-19 viral test. He had Greene catheter in situ until a day prior to discharge and was voiding adequately before discharge home. He will be discharged home today on all his current medication management and follow up in the office as instructed upon discharge. Physical Exam Vital Signs: Temp Pulse Resp BP Pulse Ox 98.3 F 83 19 116/65 91 L 05/16/20 09:13 05/16/20 14:00 05/16/20 11:15 05/16/20 11:15 05/16/20 11:15 Intake & Output 05/15/20 05/16/20 05/17/20 06:59 06:59 06:59 Intake Total 0905 3244 476 Output Total 9176 10837 [id number] [facility] -[phone] Weight 173.6 kg 168.2 kg General appearance: PRESENT: morbidly obese Head exam: PRESENT: atraumatic, normocephalic Eye exam: PRESENT: conjunctiva pink. ABSENT: pallor, sclera icterus Mouth exam: PRESENT: moist Respiratory exam: PRESENT: clear to auscultation elliot, decreased breath sounds - at lung bases Cardiovascular exam: PRESENT: RRR, +S1, +S2. ABSENT: diastolic murmur, rubs, systolic murmur GI/Abdominal exam: PRESENT: normal bowel sounds, soft. ABSENT: distended, guarding, mass, organomegaly, rebound, tenderness Genitourinary exam: ABSENT: indwelling catheter Extremities exam: PRESENT: pedal edema, other - lower extremities lymphedema with right >> left Musculoskeletal exam: PRESENT: deformity - related to multiple joints invo lvement with arthritis Neurological exam: PRESENT: alert, awake, oriented to person, oriented to place, oriented to time, oriented to situation, CN II-XII grossly intact. ABSENT: motor sensory deficit Skin exam: PRESENT: dry, warm, other - multiple chronic scaring on lower extremities Results Laboratory Results: WBC 4.9 10^3/uL (4.0-10.5) 05/16/20 09:00 RBC 4.96 10^6/uL (4.35-5.55) 05/16/20 09:00 Hgb 14.4 g/dL (13.5-17.0) 05/16/20 09:00 Hct 44.9 % (37.9-51.0) 05/16/20 09:00 MCV 91 fl (80-97) 05/16/20 09:00 MCH 29.1 pg (27.0-33.4) 05/16/20 09:00 MCHC 32.2 g/dL (32.0-36.0) 05/16/20 09:00 RDW 16.5 % (11.5-14.0) H 05/16/20 09:00 Plt Count 162 10^3/uL (150-450) 05/16/20 09:00 Lymph % (Auto) 10.9 % (13-45) L 05/13/20 05:51 Hardy % (Auto) 11.5 % (3-13) 05/13/20 05:51 Eos % (Auto) 5.3 % (0-6) 05/13/20 05:51 Baso % (Auto) 0.7 % (0-2) 05/13/20 05:51 Absolute Neuts (auto) 3.7 10^3/uL (1.7-8.2) 05/13/20 05:51 Absolute Lymphs (auto) 0.6 10^3/uL (0.5-4.7) 05/13/20 05:51 Absolute Monos (auto) 0.6 10^3/uL (0.1-1.4) 05/13/20 05:51 Absolute Eos (auto) 0.3 10^3/uL (0.0-0.6) 05/13/20 05:51 Absolute Basos (auto) 0.0 10^3/uL (0.0-0.2) 05/13/20 05:51 Seg Neutrophils % 71.6 % (42-78) 05/13/20 05:51 PT 15.2 SEC (11.4-15.4) 05/10/20 17:55 PT Cancelled 05/10/20 17:55 INR 1.18 05/10/20 17:55 INR Cancelled 05/10/20 17:55 INR (Anticoag Therapy) Cancelled 05/10/20 17:55 APTT 34.9 SEC (23.5-35.8) 05/10/20 17:55 Carbonic Acid 1.84 mmol/L (1.05-1.35) H 05/11/20 00:30 HCO3/H2CO3 Ratio 19:1 05/11/20 00:30 ABG pH 7.38 (7.35-7.45) 05/11/20 00:30 ABG pCO2 61.0 mmHg (35-45) H 05/11/20 00:30 ABG pO2 84.9 mmHg (80-100) 05/11/20 00:30 ABG HCO3 35.5 mmol/L (20-24) H 05/11/20 00:30 ABG Total CO2 37.4 mmol/L (23-27) H 05/11/20 00:30 ABG O2 Saturation 96.0 % (94-98) 05/11/20 00:30 ABG Base Excess 8.2 mmol/L 05/11/20 00:30 VBG pH 7.33 (7.30-7.42) 05/10/20 17:55 VBG pCO2 68.8 mmHg (35-63) H* 05/10/20 17:55 VBG HCO3 35.1 mmol/L (20-32) H 05/10/20 17:55 VBG Base Excess 6.7 mmol/L 05/10/20 17:55 FiO2 50% 05/11/20 00:30 Sodium 137.7 mmol/L (137-145) 05/14/20 06:35 Potassium 4.0 mmol/L (3.6-5.0) 05/14/20 06:35 Chloride 93 mmol/L (98-107) L 05/14/20 06:35 Carbon Dioxide 38 mmol/L (22-30) H 05/14/20 06:35 Anion Gap 7 (5-19) 05/14/20 06:35 BUN 16 mg/dL (7-20) 05/14/20 06:35 Creatinine 1.02 mg/dL (0.52-1.25) 05/14/20 06:35 Est GFR ( Amer) > 60 (>60) 05/14/20 06:35 Est GFR (Non-Af Amer) Cancelled 05/10/20 17:55 Est GFR (MDRD) Non-Af > 60 (>60) 05/14/20 06:35 Glucose 108 mg/dL (75-110) 05/14/20 06:35 POC Glucose 113 mg/dL (70-110) H 05/16/20 11:16 Hemoglobin A1c % 6.1 % (4.7-6.0) H 05/11/20 04:25 Lactic Acid 1.9 mmol/L (0.7-2.1) 05/11/20 01:01 Calcium 9.5 mg/dL (8.4-10.2) 05/14/20 06:35 Phosphorus 2.8 mg/dL (2.5-4.5) 05/10/20 18:36 Magnesium 2.6 mg/dL (1.6-2.3) H 05/10/20 18:36 Total Bilirubin 1.2 mg/dL (0.2-1.3) 05/13/20 05:51 Direct Bilirubin 0.5 mg/dL (0.0-0.4) H 05/13/20 05:51 Neonat Total Bilirubin Not Reportable 05/13/20 05:51 Neonat Direct Bilirubin Not Reportable 05/13/20 05:51 Neonat Indirect Bili Not Reportable 05/13/20 05:51 AST 36 U/L (17-59) 05/13/20 05:51 ALT 22 U/L (<50) 05/13/20 05:51 Alkaline Phosphatase 59 U/L (38-126) 05/13/20 05:51 Ammonia < 8.7 umol/L (9-33) L 05/10/20 22:05 Creatine Kinase 125 U/L (55-170) 05/13/20 05:51 CK-MB (CK-2) 0.66 ng/mL (<4.55) 05/13/20 05:51 Troponin I 0.063 ng/mL 05/13/20 05:51 NT-Pro-B Natriuret Pep 1220 pg/mL (<125) H 05/14/20 06:35 Total Protein 6.4 g/dL (6.3-8.2) 05/13/20 05:51 Albumin 3.1 g/dL (3.5-5.0) L 05/13/20 05:51 Triglycerides 83 mg/dL (<150) 05/11/20 04:25 Cholesterol 151.56 mg/dL (0-200) 05/11/20 04:25 LDL Cholesterol Direct 82 mg/dL (<100) 05/11/20 04:25 VLDL Cholesterol 17.0 mg/dL (10-31) 05/11/20 04:25 HDL Cholesterol 48 mg/dL (>40) 05/11/20 04:25 Amylase 67 U/L (30-110) 05/10/20 18:36 Lipase 132.7 U/L (23-300) 05/10/20 18:36 EGFR Cancelled 05/10/20 17:55 TSH 1.01 uIU/mL (0.47-4.68) 05/10/20 18:36 Free T4 1.82 ng/dL (0.78-2.19) 05/10/20 18:36 Urine Color YELLOW 05/16/20 13:45 Urine Appearance CLEAR 05/16/20 13:45 Urine pH 8.0 (5.0-9.0) 05/16/20 13:45 Ur Specific [place] 1.008 05/16/20 13:45 Urine Protein NEGATIVE mg/dL (NEGATIVE) 05/16/20 13:45 Urine Glucose (UA) NEGATIVE mg/dL (NEGATIVE) 05/16/20 13:45 Urine Ketones NEGATIVE mg/dL (NEGATIVE) 05/16/20 13:45 Urine Blood MODERATE (NEGATIVE) H 05/16/20 13:45 Urine Nitrite NEGATIVE (NEGATIVE) 05/16/20 13:45 Urine Nitrite (Reflex) NEGATIVE (NEGATIVE) 05/10/20 20:45 Urine Bilirubin NEGATIVE (NEGATIVE) 05/16/20 13:45 Urine Urobilinogen 2.0 mg/dL (<2.0) H 05/16/20 13:45 Ur Leukocyte Esterase SMALL (NEGATIVE) H 05/16/20 13:45 Leukocyte Esterase Rfl NEGATIVE (NEGATIVE) 05/10/20 20:45 Urine WBC (Auto) 23 /HPF 05/16/20 13:45 Urine RBC (Auto) 3 /HPF 05/16/20 13:45 U Hyaline Cast (Auto) 12 /LPF 05/16/20 13:45 Urine Bacteria (Auto) TRACE /HPF 05/16/20 13:45 Urine WBC (Reflex) 1 /HPF 05/10/20 20:45 Squamous Epi Cells Auto <1 /HPF 05/16/20 13:45 Urine Mucus (Auto) RARE /LPF 05/14/20 05:43 Urine Ascorbic Acid NEGATIVE (NEGATIVE) 05/16/20 13:45 Urine Opiates Screen NEGATIVE 05/10/20 20:45 Urine Methadone Screen NEGATIVE 05/10/20 20:45 Ur Barbiturates Screen NEGATIVE 05/10/20 20:45 Ur Phencyclidine Scrn NEGATIVE 05/10/20 20:45 Ur Amphetamines Screen NEGATIVE 05/10/20 20:45 U Benzodiazepines Scrn NEGATIVE 05/10/20 20:45 Urine Cocaine Screen NEGATIVE 05/10/20 20:45 U Marijuana (THC) Screen NEGATIVE 05/10/20 20:45 COVID-19 Source See comment 05/11/20 00:30 COVID-19 ([place]) Not Detected (Not Detect) 05/11/20 00:30 05/10/20 05/10/20 05/10/20 17:55 18:36 22:20 CK-MB (CK-2) 1.06 Troponin I Cancelled 0.145 0.164 NT-Pro-B Natriuret Pep 2130 H 05/11/20 05/11/20 05/13/20 04:25 12:08 05:51 CK-MB (CK-2) 1.05 1.15 0.66 Troponin I 0.134 0.105 0.063 NT-Pro-B Natriuret Pep 05/14/20 06:35 CK-MB (CK-2) Troponin I NT-Pro-B Natriuret Pep 1220 H Impressions: Chest X-Ray 05/10/20 18:08 IMPRESSION: Increased interstitial and alveolar opacities throughout both lungs. Small bilateral pleural effusions. Plan Health Concerns: Medication and dietary restriction compliance . High risk for readmission. Plan of Treatment: Emphasized need for medication and dietary restriction compliance. Goals: Reduce readmission risk. Time Spent: Greater than 30 Minutes Stroke Is this a Stroke Patient?: No Acute Heart Failure Is this a Heart Failure Patient?: Yes Documentation of LVEF assessment?: Yes LVEF: LVEF Less Than or Equal to 40% Anticoagulant Therapy: No, document contraindications Reason(s) not Discharged on Anticoagulant Therapy: Repeated falls/unsteady gait Discharged on Evidence-Based Beta Blockers: Yes Discharged on ARNI?: Yes Discharged on ARB?: N/A-Discharged on ARNI Discharged on ACEI?: N/A Discharged on ARNI For LVEF <35%, discharged on Aldosterone Antagonist?: N/A (LVEF > or = 35%) Follow-up Appointment scheduled within 7 days?: Yes
[2020-05-16] MEDS: ATORVASTATIN CALCIUM 20 MG TABLET PO SCH (21:14)
[2020-05-17] MEDS: HEPARIN SOD (PORCINE) 5,000 UNIT/ML 1 ML VIAL SUBCUT SCH ×3 (05:12→21:44)
[2020-05-17] MEDS: PANTOPRAZOLE SODIUM 40 MG TABLET.DR PO SCH (05:25)
[2020-05-17] MEDS: FUROSEMIDE INJ/PF 40 MG/4 ML SDV IV SCH ×2 (05:25→17:48)
[2020-05-17] MEDS: INSULIN LISPRO 100 UNIT/ML 3 ML VIAL SUBCUT SCH ×4 (08:45→21:55)
--- NOTE | 2020-05-17 10:46 | PDOC PROGRESS REPORT ---
Subjective Progress Note for:: 05/17/20 Subjective:: Patient is currently doing well Patient is discharged home but waiting for the home equipments hopefully going on a Tuesday according to the management planner No other concern Reason For Visit: ACUTE RESPIRATORY FAILURE,CHF R/O COVID Physical Exam Vital Signs: Temp Pulse Resp BP Pulse Ox 97.9 F 92 18 93/50 L 94 05/17/20 10:00 05/17/20 08:25 05/17/20 08:25 05/17/20 08:25 05/17/20 08:25 Intake & Output 05/16/20 05/17/20 05/18/20 06:59 06:59 06:59 Intake Total 1844 854 Output Total 0032215 3237 Balance -6563 -5372 Weight 168.2 kg 168.1 kg General appearance: PRESENT: no acute distress, well-developed, well-nourished Head exam: PRESENT: atraumatic, normocephalic Eye exam: PRESENT: conjunctiva pink, EOMI, PERRLA. ABSENT: scleral icterus Ear exam: PRESENT: normal external ear exam Mouth exam: PRESENT: moist, tongue midline Neck exam: PRESENT: full ROM. ABSENT: carotid bruit, JVD, lymphadenopathy, thyromegaly Respiratory exam: PRESENT: clear to auscultation elliot Cardiovascular exam: PRESENT: RRR. ABSENT: diastolic murmur, rubs, systolic murmur Vascular exam: PRESENT: normal capillary refill GI/Abdominal exam: PRESENT: normal bowel sounds, soft. ABSENT: distended, gu arding, mass, organolmegaly, rebound, tenderness Rectal exam: PRESENT: deferred Neurological exam: PRESENT: alert, awake, oriented to person, oriented to place, oriented to time, oriented to situation. ABSENT: motor sensory deficit Psychiatric exam: PRESENT: appropriate affect, normal mood. ABSENT: homicidal ideation, suicidal ideation Skin exam: PRESENT: dry, intact, warm. ABSENT: cyanosis, rash Results Laboratory Results: 05/16/20 09:00 05/14/20 06:35 05/16/20 05/16/20 09:00 13:45 WBC 4.9 RBC 4.96 Hgb 14.4 Hct 44.9 MCV 91 MCH 29.1 MCHC 32.2 RDW 16.5 H Plt Count 162 Urine Color YELLOW Urine Appearance CLEAR Urine pH 8.0 Ur Specific [place] 1.008 Urine Protein NEGATIVE Urine Glucose (UA) NEGATIVE Urine Ketones NEGATIVE Urine Blood MODERATE H Urine Nitrite NEGATIVE Ur Leukocyte Esterase SMALL H Urine WBC (Auto) 23 Urine RBC (Auto) 3 05/10/20 05/10/20 05/10/20 17:55 18:36 22:20 Creatine Kinase 711 H CK-MB (CK-2) Troponin I Cancelled 0.145 NT-Pro-B Natriuret Pep 2130 H 05/10/20 05/11/20 05/11/20 22:20 04:25 04:25 Creatine Kinase 642 H CK-MB (CK-2) 1.06 1.05 Troponin I 0.164 0.134 NT-Pro-B Natriuret Pep 05/11/20 05/11/20 05/13/20 12:08 12:08 05:51 Creatine Kinase 427 H 125 CK-MB (CK-2) 1.15 Troponin I 0.105 NT-Pro-B Natriuret Pep 05/13/20 05/14/20 05:51 06:35 Creatine Kinase CK-MB (CK-2) 0.66 Troponin I 0.063 NT-Pro-B Natriuret Pep 1220 H Impressions: Chest X-Ray 05/10/20 18:08 IMPRESSION: Increased interstitial and alveolar opacities throughout both lungs. Small bilateral pleural effusions. Assessment & Plan - Diagnosis (1) Acute and chronic respiratory failure Qualifiers: Respiratory failure complication: hypoxia and hypercapnia Qualified Code(s): J96.21 - Acute and chronic respiratory failure with hypoxia; J96.22 - Acute and chronic respiratory failure with hypercapnia Is this a current diagnosis for this admission?: Yes (2) Acute combined systolic (congestive) and diastolic (congestive) heart failure Is this a current diagnosis for this admission?: Yes (3) Morbid obesity Is this a current diagnosis for this admission?: Yes - Time Time Spent with patient: Less than 15 minutes Level of Care: IMCU Medications reviewed and adjusted accordingly: Yes Anticipated discharge: Home with Homehealth Anticipated DC Timeframe: Other - Plan Summary Plan Summary: Continues to current medications
[2020-05-17] MEDS: ASPIRIN 81 MG TABLET, CHEWABLE PO SCH (11:50)
[2020-05-17] MEDS: SACUBITRIL/VALSARTAN 24 MG/26 MG TABLET PO SCH ×2 (11:53→21:45)
[2020-05-17] MEDS: METOPROLOL SUCCINATE 25 MG TAB.SR.24H PO SCH (11:53)
[2020-05-17] MEDS: ATORVASTATIN CALCIUM 20 MG TABLET PO SCH (21:44)
[2020-05-18] MEDS: FUROSEMIDE INJ/PF 40 MG/4 ML SDV IV SCH ×2 (06:06→17:37)
[2020-05-18] MEDS: HEPARIN SOD (PORCINE) 5,000 UNIT/ML 1 ML VIAL SUBCUT SCH ×3 (06:07→21:30)
[2020-05-18] MEDS: PANTOPRAZOLE SODIUM 40 MG TABLET.DR PO SCH (06:08)
--- NOTE | 2020-05-18 09:54 | PDOC PROGRESS REPORT ---
Subjective Progress Note for:: 05/18/20 Subjective:: Patient is currently doing well Patient is discharged home but waiting for the home equipments hopefully going on a Tuesday according to the planner internship No other concern Reason For Visit: ACUTE RESPIRATORY FAILURE,CHF R/O COVID Physical Exam Vital Signs: Temp Pulse Resp BP Pulse Ox 98.3 F 85 20 99/50 L 92 05/18/20 08:01 05/18/20 08:01 05/18/20 08:01 05/18/20 08:01 05/18/20 08:01 Intake & Output 05/17/20 05/18/20 05/19/20 06:59 06:59 06:59 Intake Total 854 2530 Output Total 3075 1925 Balance -2221 605 Weight 168.1 kg 169 kg General appearance: PRESENT: no acute distress, well-developed, well-nourished Head exam: PRESENT: atraumatic, normocephalic Eye exam: PRESENT: conjunctiva pink, EOMI, PERRLA. ABSENT: scleral icterus Ear exam: PRESENT: normal external ear exam Mouth exam: PRESENT: moist, tongue midline Neck exam: PRESENT: full ROM. ABSENT: carotid bruit, JVD, lymphadenopathy, thyromegaly Cardiovascular exam: PRESENT: RRR. ABSENT: diastolic murmur, rubs, systolic murmur Pulses: PRESENT: normal dorsalis pedis pul, +2 pedal pulses bilateral Vascular exam: PRESENT: normal capillary refill GI/Abdominal exam: PRESENT: normal bowel sounds, soft. ABSENT: distended, guarding, mass, organolmegaly, rebound, tenderness Rectal exam: PRESENT: deferred Neurological exam: PRESENT: alert, awake, oriented to person, oriented to place, oriented to time, oriented to situation, CN II-XII grossly intact. ABSENT: m otor sensory deficit Psychiatric exam: PRESENT: appropriate affect, normal mood. ABSENT: homicidal ideation, suicidal ideation Skin exam: PRESENT: dry, intact, warm. ABSENT: cyanosis, rash Results Laboratory Results: 05/16/20 09:00 05/14/20 06:35 05/10/20 05/10/20 05/10/20 17:55 18:36 22:20 Creatine Kinase 711 H CK-MB (CK-2) Troponin I Cancelled 0.145 NT-Pro-B Natriuret Pep 2130 H 05/10/20 05/11/20 05/11/20 22:20 04:25 04:25 Creatine Kinase 642 H CK-MB (CK-2) 1.06 1.05 Troponin I 0.164 0.134 NT-Pro-B Natriuret Pep 05/11/20 05/11/20 05/13/20 12:08 12:08 05:51 Creatine Kinase 427 H 125 CK-MB (CK-2) 1.15 Troponin I 0.105 NT-Pro-B Natriuret Pep 05/13/20 05/14/20 05:51 06:35 Creatine Kinase CK-MB (CK-2) 0.66 Troponin I 0.063 NT-Pro-B Natriuret Pep 1220 H Impressions: Chest X-Ray 05/10/20 18:08 IMPRESSION: Increased interstitial and alveolar opacities throughout both lungs. Small bilateral pleural effusions. Assessment & Plan - Diagnosis (1) Acute and chronic respiratory failure Qualifiers: Respiratory failure complication: hypoxia and hypercapnia Qualified Code(s): J96.21 - Acute and chronic respiratory failure with hypoxia; J96.22 - Acute and chronic respiratory failure with hypercapnia Is this a current diagnosis for this admission?: Yes (2) Acute combined systolic (congestive) and diastolic (congestive) heart failure Is this a current diagnosis for this admission?: Yes (3) Morbid obesity Is this a current diagnosis for this admission?: Yes - Time Time Spent with patient: 15-24 minutes Level of Care: IMCU Medications reviewed and adjusted accordingly: Yes Anticipated discharge: Home with Homehealth Anticipated DC Timeframe: when bed available - Plan Summary Plan Summary: Continues to current medications
[2020-05-18] MEDS: INSULIN LISPRO 100 UNIT/ML 3 ML VIAL SUBCUT SCH ×4 (10:33→21:46)
[2020-05-18] MEDS: SACUBITRIL/VALSARTAN 24 MG/26 MG TABLET PO SCH ×2 (12:31→21:27)
[2020-05-18] MEDS: METOPROLOL SUCCINATE 25 MG TAB.SR.24H PO SCH (12:32)
[2020-05-18] MEDS: ASPIRIN 81 MG TABLET, CHEWABLE PO SCH (12:32)
[2020-05-18] MEDS: ATORVASTATIN CALCIUM 20 MG TABLET PO SCH (21:27)
[2020-05-19] MEDS: PANTOPRAZOLE SODIUM 40 MG TABLET.DR PO SCH (05:20)
[2020-05-19] MEDS: FUROSEMIDE INJ/PF 40 MG/4 ML SDV IV SCH ×2 (05:20→18:14)
[2020-05-19] MEDS: HEPARIN SOD (PORCINE) 5,000 UNIT/ML 1 ML VIAL SUBCUT SCH ×3 (05:22→21:21)
[2020-05-19 06:05] LABS: HEMATOCRIT 43.5 % (37.9-51.0); HEMOGLOBIN 14.3 g/dL (13.5-17.0); MEAN CORPUSCULAR HEMOGLOBIN 29.5 pg (27.0-33.4); MEAN CORPUSCULAR HGB CONC 32.9 g/dL (32.0-36.0); MEAN CORPUSCULAR VOLUME 90 fl (80-97); PLATELET COUNT 174 10^3/uL (150-450); RED BLOOD COUNT 4.84 10^6/uL (4.35-5.55); RED CELL DISTRIBUTION WIDTH 16.2 % (11.5-14.0); WHITE BLOOD COUNT 5.8 10^3/uL (4.0-10.5)
[2020-05-19] MEDS: INSULIN LISPRO 100 UNIT/ML 3 ML VIAL SUBCUT SCH ×3 (09:02→18:11)
[2020-05-19] MEDS: ASPIRIN 81 MG TABLET, CHEWABLE PO SCH (10:23)
[2020-05-19] MEDS: SACUBITRIL/VALSARTAN 24 MG/26 MG TABLET PO SCH ×2 (10:24→21:20)
[2020-05-19] MEDS: METOPROLOL SUCCINATE 25 MG TAB.SR.24H PO SCH (10:24)
[2020-05-19 13:32] LABS: APPEARANCE,URINE SLIGHTLY-CLOUDY; BILIRUBIN,URINE NEGATIVE (NEGATIVE); COLOR,URINE YELLOW; GLUCOSE, URINE NEGATIVE (NEGATIVE); KETONES,URINE NEGATIVE (NEGATIVE); LEUKOCYTE ESTERASE,URINE LARGE (NEGATIVE); NITRITE,URINE NEGATIVE (NEGATIVE); PROTEIN,URINE 30 mg/dL (NEGATIVE); URINE SPECIFIC GRAVITY 1.013
--- NOTE | 2020-05-19 15:20 | PDOC PROGRESS REPORT ---
Subjective Progress Note for:: 05/19/20 Subjective:: Patient discharged was delayed due to difficulty with setting him up with NIPPV device due to his morbid obesity, hypoventilation syndrome with hypercapnia and hypoxemia. No chest pain or difficulty with breathing. No abdominal pain, nausea, or vomiting. No fever or chills. Reason For Visit: ACUTE RESPIRATORY FAILURE,CHF R/O COVID Physical Exam Vital Signs: Temp Pulse Resp BP Pulse Ox 98.0 F 86 20 94/58 L 93 05/19/20 11:28 05/19/20 11:28 05/19/20 11:28 05/19/20 11:28 05/19/20 11:28 Intake & Output 05/18/20 05/19/20 05/20/20 06:59 06:59 06:59 Intake Total 2530 2500 600 Output Total 1925 2605 875 Balance 605 -105 -420 Weight 169 kg 169 kg Physical Exam: General appearance: PRESENT: morbidly obese, remain on supplemental oxygen via nasal cannula Head exam: PRESENT: atraumatic, normocephalic Eye exam: PRESENT: conjunctiva pink. ABSENT: pallor, sclera icterus Mouth exam: PRESENT: moist Respiratory exam: PRESENT: clear to auscultation elliot, decreased breath sounds - at lung bases Cardiovascular exam: PRESENT: RRR, +S1, +S2. ABSENT: diastolic murmur, rubs, systolic murmur GI/Abdominal exam: PRESENT: normal bowel sounds, soft. ABSENT: distended, guarding, mass, organomegaly, rebound, tenderness Genitourinary exam: PRESENT: indwelling catheter Extremities exam: PRESENT: pedal edema, other - lower extremities lymphedema with right >> left Musculoskeletal exam: PRESENT: deformity - related to multiple joints involvement with arthritis Neurological exam: PRESENT: alert, awake, oriented to person, oriented to place, oriented to time, oriented to situation, CN II-XII grossly intact. ABSENT: motor sensory deficit Skin exam: PRESENT: dry, warm, other - multiple chronic scaring on lower ex tremities Results Laboratory Results: 05/19/20 05:34 05/14/20 06:35 05/19/20 05/19/20 05:34 12:52 WBC 5.8 RBC 4.84 Hgb 14.3 Hct 43.5 MCV 90 MCH 29.5 MCHC 32.9 RDW 16.2 H Plt Count 174 Urine Color YELLOW Urine Appearance SLIGHTLY-CLOUDY Urine pH 7.0 Ur Specific [place] 1.013 Urine Protein 30 H Urine Glucose (UA) NEGATIVE Urine Ketones NEGATIVE Urine Blood MODERATE H Urine Nitrite NEGATIVE Ur Leukocyte Esterase LARGE H Urine WBC (Auto) 124 Urine RBC (Auto) 15 05/10/20 05/10/20 05/10/20 17:55 18:36 22:20 Creatine Kinase 711 H CK-MB (CK-2) Troponin I Cancelled 0.145 NT-Pro-B Natriuret Pep 2130 H 05/10/20 05/11/20 05/11/20 22:20 04:25 04:25 Creatine Kinase 642 H CK-MB (CK-2) 1.06 1.05 Troponin I 0.164 0.134 NT-Pro-B Natriuret Pep 05/11/20 05/11/20 05/13/20 12:08 12:08 05:51 Creatine Kinase 427 H 125 CK-MB (CK-2) 1.15 Troponin I 0.105 NT-Pro-B Natriuret Pep 05/13/20 05/14/20 05:51 06:35 Creatine Kinase CK-MB (CK-2) 0.66 Troponin I 0.063 NT-Pro-B Natriuret Pep 1220 H Impressions: Chest X-Ray 05/10/20 18:08 IMPRESSION: Increased interstitial and alveolar opacities throughout both lungs. Small bilateral pleural effusions. Assessment & Plan - Diagnosis (1) Acute and chronic respiratory failure with hypercapnia Is this a current diagnosis for this admission?: Yes (2) Acute combined systolic (congestive) and diastolic (congestive) heart failure Is this a current diagnosis for this admission?: Yes (3) Elevated troponin Is this a current diagnosis for this admission?: Yes (4) Lymphedema of both lower extremities Is this a current diagnosis for this admission?: Yes (5) Morbid obesity Is this a current diagnosis for this admission?: Yes (6) Obesity hypoventilation syndrome Is this a current diagnosis for this admission?: Yes Plan: Working on getting Trilogy for home use. Continue other current medical management. - Time Time Spent with patient: 25-34 minutes Level of Care: IMCU Medications reviewed and adjusted accordingly: Yes Anticipated discharge: Home with Homehealth Anticipated DC Timeframe: within 72 hours - Inpatient Certification Based on my medical assessment, after consideration of the patient's comorbidities, presenting symptoms, or acuity I expect that the services needed warrant INPATIENT care.: Yes I certify that my determination is in accordance with my understanding of Medicare's requirements for reasonable and necessary INPATIENT services [42 CFR 412.3e].: Yes Medical Necessity: Significant Comorbidiites Make Outpatient Treatment Too Risky, Need Close Monitoring Due to Risk of Patient Decompensation, Need For Continuous Telemetry Monitoring, Risk of Complication if Not Cared For in Hospital, Risk of Diagnosis Which Will Require Inpatient Eval/Care/Monitoring Post Hospital Care: D/C Financial Aid Director 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 Patient will definitely benefit from NIPPV device such as Trilogy due to his congestive heart failure, morbid obesity and hypoventilation with hypercapnia and hypoxemia. We kierra continue efforts at securing such device for his home use before discharge.
[2020-05-19] MEDS: ATORVASTATIN CALCIUM 20 MG TABLET PO SCH (21:20)
[2020-05-20] MEDS: INSULIN LISPRO 100 UNIT/ML 3 ML VIAL SUBCUT SCH ×5 (01:35→22:36)
[2020-05-20] MEDS: FUROSEMIDE INJ/PF 40 MG/4 ML SDV IV SCH ×2 (05:29→17:39)
[2020-05-20] MEDS: PANTOPRAZOLE SODIUM 40 MG TABLET.DR PO SCH (05:30)
[2020-05-20] MEDS: HEPARIN SOD (PORCINE) 5,000 UNIT/ML 1 ML VIAL SUBCUT SCH ×3 (05:30→22:35)
[2020-05-20] MEDS: SACUBITRIL/VALSARTAN 24 MG/26 MG TABLET PO SCH ×2 (09:57→22:35)
[2020-05-20] MEDS: METOPROLOL SUCCINATE 25 MG TAB.SR.24H PO SCH (09:57)
[2020-05-20] MEDS: ASPIRIN 81 MG TABLET, CHEWABLE PO SCH (09:57)
--- NOTE | 2020-05-20 18:10 | PDOC PROGRESS REPORT ---
Subjective Progress Note for:: 05/20/20 Subjective:: Patient denied chest pain or difficulty with breathing. No abdominal pain, nausea, or vomiting. No fever or chills. Reason For Visit: ACUTE RESPIRATORY FAILURE,CHF R/O COVID Physical Exam Vital Signs: Temp Pulse Resp BP Pulse Ox 98.2 F 82 15 101/55 L 97 05/20/20 15:56 05/20/20 15:56 05/20/20 11:31 05/20/20 15:56 05/20/20 15:56 Intake & Output 05/19/20 05/20/20 05/21/20 06:59 06:59 06:59 Intake Total 2500 1620 580 Output Total 2605 3200 500 Balance -105 -1580 80 Weight 169 kg 164.1 kg Physical Exam: General appearance: PRESENT: morbidly obese, remain on supplemental oxygen via nasal cannula and BiPAP support while sleeping. Head exam: PRESENT: atraumatic, normocephalic Eye exam: PRESENT: conjunctiva pink. ABSENT: pallor, sclera icterus Mouth exam: PRESENT: moist Respiratory exam: PRESENT: clear to auscultation elliot, decreased breath sounds - at lung bases Cardiovascular exam: PRESENT: RRR, +S1, +S2. ABSENT: diastolic murmur, rubs, systolic murmur GI/Abdominal exam: PRESENT: normal bowel sounds, soft. ABSENT: distended, guarding, mass, organomegaly, rebound, tenderness Genitourinary exam: PRESENT: indwelling catheter Extremities exam: PRESENT: pedal edema, other - lower extremities lymphedema with right >> left Musculoskeletal exam: PRESENT: deformity - related to multiple joints invo lvement with arthritis Neurological exam: PRESENT: alert, awake, oriented to person, oriented to place, oriented to time, oriented to situation, CN II-XII grossly intact. ABSENT: motor sensory deficit Skin exam: PRESENT: dry, warm, other - multiple chronic scaring on lower extremities Results Laboratory Results: 05/19/20 05:34 05/14/20 06:35 05/10/20 05/10/20 05/10/20 17:55 18:36 22:20 Creatine Kinase 711 H CK-MB (CK-2) Troponin I Cancelled 0.145 NT-Pro-B Natriuret Pep 2130 H 05/10/20 05/11/20 05/11/20 22:20 04:25 04:25 Creatine Kinase 642 H CK-MB (CK-2) 1.06 1.05 Troponin I 0.164 0.134 NT-Pro-B Natriuret Pep 05/11/20 05/11/20 05/13/20 12:08 12:08 05:51 Creatine Kinase 427 H 125 CK-MB (CK-2) 1.15 Troponin I 0.105 NT-Pro-B Natriuret Pep 05/13/20 05/14/20 05:51 06:35 Creatine Kinase CK-MB (CK-2) 0.66 Troponin I 0.063 NT-Pro-B Natriuret Pep 1220 H Impressions: Chest X-Ray 05/10/20 18:08 IMPRESSION: Increased interstitial and alveolar opacities throughout both lungs. Small bilateral pleural effusions. Assessment & Plan - Diagnosis (1) Acute and chronic respiratory failure with hypercapnia Is this a current diagnosis for this admission?: Yes (2) Acute combined systolic (congestive) and diastolic (congestive) heart failure Is this a current diagnosis for this admission?: Yes (3) Elevated troponin Is this a current diagnosis for this admission?: Yes (4) Lymphedema of both lower extremities Is this a current diagnosis for this admission?: Yes (5) Morbid obesity Is this a current diagnosis for this admission?: Yes (6) Obesity hypoventilation syndrome Is this a current diagnosis for this admission?: Yes Plan: We are still in the process of obtaining trilogy device for the patient home use. 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 he will benefit from home Trilogy device assistance to manage his hypoventilation with hypercapnia and hypoxemia as well as reduce his high readmission. - Time Time Spent with patient: 25-34 minutes Level of Care: IMCU Medications reviewed and adjusted accordingly: Yes Anticipated discharge: Home with Homehealth Anticipated DC Timeframe: within 72 hours - Inpatient Certification Based on my medical assessment, after consideration of the patient's comorbid ities, presenting symptoms, or acuity I expect that the services needed warrant INPATIENT care.: Yes I certify that my determination is in accordance with my understanding of Medicare's requirements for reasonable and necessary INPATIENT services [42 CFR 412.3e].: Yes Medical Necessity: Significant Comorbidiites Make Outpatient Treatment Too Risky, Need Close Monitoring Due to Risk of Patient Decompensation, Need For Continuous Telemetry Monitoring, Risk of Complication if Not Cared For in Hospital, Risk of Diagnosis Which Will Require Inpatient Eval/Care/Monitoring Post Hospital Care: D/C Clinical Staff Pharmacist 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 I discussed at length with regional planner regarding necessary documentation to support patient's needs and benefit from Trilogy NIPPV device home use.
[2020-05-20] MEDS: ATORVASTATIN CALCIUM 20 MG TABLET PO SCH (22:35)
[2020-05-21] MEDS: HEPARIN SOD (PORCINE) 5,000 UNIT/ML 1 ML VIAL SUBCUT SCH (05:55)
[2020-05-21] MEDS: FUROSEMIDE INJ/PF 40 MG/4 ML SDV IV SCH (05:56)
[2020-05-21] MEDS: PANTOPRAZOLE SODIUM 40 MG TABLET.DR PO SCH (05:56)
[2020-05-21 06:50] LABS: HEMATOCRIT 43.6 % (37.9-51.0); HEMOGLOBIN 14.2 g/dL (13.5-17.0); MEAN CORPUSCULAR HEMOGLOBIN 29.1 pg (27.0-33.4); MEAN CORPUSCULAR HGB CONC 32.6 g/dL (32.0-36.0); MEAN CORPUSCULAR VOLUME 89 fl (80-97); PLATELET COUNT 186 10^3/uL (150-450); RED BLOOD COUNT 4.89 10^6/uL (4.35-5.55); RED CELL DISTRIBUTION WIDTH 16.2 % (11.5-14.0)
[2020-05-21] MEDS: INSULIN LISPRO 100 UNIT/ML 3 ML VIAL SUBCUT SCH ×2 (09:44→11:00)
[2020-05-21] MEDS: METOPROLOL SUCCINATE 25 MG TAB.SR.24H PO SCH (09:48)
[2020-05-21] MEDS: ASPIRIN 81 MG TABLET, CHEWABLE PO SCH (09:48)
[2020-05-21] MEDS: SACUBITRIL/VALSARTAN 24 MG/26 MG TABLET PO SCH (09:48)
[2020-05-21 16:58] VITALS: BP 99/59
--- NOTE | 2020-05-21 20:18 | PDOC DISCHARGE SUMMARY ---
Impression - Admit/DC Date/PCP Admission Date/Primary Care Provider: 05/10/20 20:41 GOPAL WALLACE MD Discharge Date: 05/21/20 - Discharge Diagnosis (1) Acute and chronic respiratory failure with hypercapnia Is this a current diagnosis for this admission?: Yes (2) Acute combined systolic (congestive) and diastolic (congestive) heart failure Is this a current diagnosis for this admission?: Yes (3) Elevated troponin Is this a current diagnosis for this admission?: Yes (4) Lymphedema of both lower extremities Is this a current diagnosis for this admission?: Yes (5) Morbid obesity Is this a current diagnosis for this admission?: Yes (6) Obesity hypoventilation syndrome Is this a current diagnosis for this admission?: Yes - Assessment Summary: Patient was admitted following recurrent fall at home and concern for possible CAD event due to elevation of his total CK and elevated Troponin. His NT-Pro BNP was elevated but his CK-MB was within normal limit on serial measurement. There was associated hypercapnia upon presentation, related to his morbid obesity and associated hypoventilation syndrome. His echocardiogram revealed suboptimal LVEF at about 35 % with grade ll diastolic dysfunction qualifying patient with combines systolic and diastolic CHF. He was managed with IV furosemide and GDMT for CHF. His NT-Pro BNP did show downward trend with treatment. His urine culture did not reveal any significant colon count infection to warrant treatment. Patient tested negative for COVID-19 viral test. He had Greene catheter in situ until a day prior to discharge and was voiding adequately before discharge home. He will be discharged home today on all his current medication management and follow up in the office as instructed upon discharge. His earlier discharge was delayed due to difficulty in securing NIPPV device for the patient at home. - Additional Information Resuscitation Status: Full Code Discharge Diet: Cardiac Discharge Activity: Activity As Tolerated, Balance Activity w/Rest, Weigh Daily Referrals: [employer] [facility] [Outside] [facility] [Outside] GOPAL WALLACE MD [ACTIVE STAFF] - 05/26/20 11:00 am (Consider telehealth if he is not able to make office visit due to transportation problem.) Prescriptions: Aspirin [Aspirin 81 mg Chewable Tablet] 162 mg PO DAILY #30 tab.chew Sacubitril/Valsartan [Entresto 24 mg/26 mg Tablet] 1 tab PO Q12 #60 tablet Furosemide [Lasix 40 mg Tablet] 40 mg PO BID #60 Atorvastatin Calcium [Lipitor 20 mg Tablet] 20 mg PO QHS #30 tablet Metoprolol Succinate [Toprol Xl 25 mg Tab.sr] 25 mg PO DAILY #30 tab.sr.24h Home Medications: Aspirin [Aspirin 81 mg Chewable Tablet] 162 mg PO DAILY #30 tab.chew 05/16/20 Atorvastatin Calcium [Lipitor 20 mg Tablet] 20 mg PO QHS #30 tablet 05/16/20 Furosemide [Lasix 40 mg Tablet] 40 mg PO BID #60 05/16/20 Metoprolol Succinate [Toprol Xl 25 mg Tab.sr] 25 mg PO DAILY #30 tab.sr.24h 05/16/20 Sacubitril/Valsartan [Entresto 24 mg/26 mg Tablet] 1 tab PO Q12 #60 tablet 05/16/20 History of Present Illiness History of Present Illness: JORDAN AVALOS is a 64 year old male he came to the emergency room last night for evaluation of fall he fell in his living room while trying to get to the bathroom, his legs just went out from underneath him there was no antecedent chest pain, no loss of consciousness he could not get himself of the floor he was transferred to the emergency room for evaluation. He has chronic huge lymphedema of both lower extremities with areas of scars, fibrosis more so on the right than the left. He normally follows with Dr. Wallace but it seems that is not compliant with follow-up evaluation, he said whenever he is due for follow-up there is always something that prevent him from going for follow-up evaluation. 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 I saw the patient in emergency room, he is critically ill looking he also smoked cigarette a pack a day Hospital Course Hospital Course: Patient was admitted following recurrent fall at home and concern for possible CAD event due to elevation of his total CK and elevated Troponin. His NT-Pro BNP was elevated but his CK-MB was within normal limit on serial measurement. There was associated hypercapnia upon presentation, related to his morbid obesity and associated hypoventilation syndrome. His echocardiogram revealed suboptimal LVEF at about 35 % with grade ll diastolic dysfunction qualifying patient with combines systolic and diastolic CHF. He was managed with IV furosemide and GDMT for CHF. His NT-Pro BNP did show downward trend with treatment. His urine culture did not reveal any significant colon count infection to warrant treatment. Patient tested negative for COVID-19 viral test. He had Greene catheter in situ until a day prior to discharge and was voiding adequately before discharge home. He will be discharged home today on all his current medication management and follow up in the office as instructed upon discharge. His earlier discharge was delayed due to difficulty in securing NIPPV device for the patient at home. Physical Exam Vital Signs: Temp Pulse Resp BP Pulse Ox 97.9 F 67 22 H 106/66 94 05/21/20 16:30 05/21/20 16:30 05/21/20 16:30 05/21/20 16:30 05/21/20 16:30 Intake & Output 05/20/20 05/21/20 05/22/20 06:59 06:59 06:59 Intake Total 1620 1540 956 Output Total 3200 1925 525 Balance -1580 -385 431 Weight 164.1 kg 165.8 kg General appearance: PRESENT: morbidly obese, remain on supplemental oxygen via nasal cannula and BiPAP support while sleeping. Head exam: PRESENT: atraumatic, normocephalic Eye exam: PRESENT: conjunctiva pink. ABSENT: pallor, sclera icterus Mouth exam: PRESENT: moist Respiratory exam: PRESENT: clear to auscultation elliot Cardiovascular exam: PRESENT: RRR, +S1, +S2. ABSENT: diastolic murmur, rubs, systolic murmur GI/Abdominal exam: PRESENT: normal bowel sounds, soft. ABSENT: distended, guarding, mass, organomegaly, rebound, tenderness Extremities exam: PRESENT: pedal edema, other - lower extremities lymphedema with right >> left Musculoskeletal exam: PRESENT: deformity - related to multiple joints involvement with arthritis Neurological exam: PRESENT: alert, awake, oriented to person, oriented to place, oriented to time, oriented to situation, CN II-XII grossly intact. ABSENT: motor sensory deficit Skin exam: PRESENT: dry, warm, other - multiple chronic scaring on lower extremities Results Laboratory Results: WBC 7.0 10^3/uL (4.0-10.5) 05/21/20 06:20 RBC 4.89 10^6/uL (4.35-5.55) 05/21/20 06:20 Hgb 14.2 g/dL (13.5-17.0) 05/21/20 06:20 Hct 43.6 % (37.9-51.0) 05/21/20 06:20 MCV 89 fl (80-97) 05/21/20 06:20 MCH 29.1 pg (27.0-33.4) 05/21/20 06:20 MCHC 32.6 g/dL (32.0-36.0) 05/21/20 06:20 RDW 16.2 % (11.5-14.0) H 05/21/20 06:20 Plt Count 186 10^3/uL (150-450) 05/21/20 06:20 Lymph % (Auto) 10.9 % (13-45) L 05/13/20 05:51 [place] % (Auto) 11.5 % (3-13) 05/13/20 05:51 Eos % (Auto) 5.3 % (0-6) 05/13/20 05:51 Baso % (Auto) 0.7 % (0-2) 05/13/20 05:51 Absolute Neuts (auto) 3.7 10^3/uL (1.7-8.2) 05/13/20 05:51 Absolute Lymphs (auto) 0.6 10^3/uL (0.5-4.7) 05/13/20 05:51 Absolute Monos (auto) 0.6 10^3/uL (0.1-1.4) 05/13/20 05:51 Absolute Eos (auto) 0.3 10^3/uL (0.0-0.6) 05/13/20 05:51 Absolute Basos (auto) 0.0 10^3/uL (0.0-0.2) 05/13/20 05:51 Seg Neutrophils % 71.6 % (42-78) 05/13/20 05:51 PT 15.2 SEC (11.4-15.4) 05/10/20 17:55 PT Cancelled 05/10/20 17:55 INR 1.18 05/10/20 17:55 INR Cancelled 05/10/20 17:55 INR (Anticoag Therapy) Cancelled 05/10/20 17:55 APTT 34.9 SEC (23.5-35.8) 05/10/20 17:55 Carbonic Acid 1.84 mmol/L (1.05-1.35) H 05/11/20 00:30 HCO3/H2CO3 Ratio 19:1 05/11/20 00:30 ABG pH 7.38 (7.35-7.45) 05/11/20 00:30 ABG pCO2 61.0 mmHg (35-45) H 05/11/20 00:30 ABG pO2 84.9 mmHg (80-100) 05/11/20 00:30 ABG HCO3 35.5 mmol/L (20-24) H 05/11/20 00:30 ABG Total CO2 37.4 mmol/L (23-27) H 05/11/20 00:30 ABG O2 Saturation 96.0 % (94-98) 05/11/20 00:30 ABG Base Excess 8.2 mmol/L 05/11/20 00:30 VBG pH 7.33 (7.30-7.42) 05/10/20 17:55 VBG pCO2 68.8 mmHg (35-63) H* 05/10/20 17:55 VBG HCO3 35.1 mmol/L (20-32) H 05/10/20 17:55 VBG Base Excess 6.7 mmol/L 05/10/20 17:55 FiO2 50% 05/11/20 00:30 Sodium 137.7 mmol/L (137-145) 05/14/20 06:35 Potassium 4.0 mmol/L (3.6-5.0) 05/14/20 06:35 Chloride 93 mmol/L (98-107) L 05/14/20 06:35 Carbon Dioxide 38 mmol/L (22-30) H 05/14/20 06:35 Anion Gap 7 (5-19) 05/14/20 06:35 BUN 16 mg/dL (7-20) 05/14/20 06:35 Creatinine 1.02 mg/dL (0.52-1.25) 05/14/20 06:35 Est GFR ( Amer) > 60 (>60) 05/14/20 06:35 Est GFR (Non-Af Amer) Cancelled 05/10/20 17:55 Est GFR (MDRD) Non-Af > 60 (>60) 05/14/20 06:35 Glucose 108 mg/dL (75-110) 05/14/20 06:35 POC Glucose 134 mg/dL (70-110) H 05/21/20 15:42 Hemoglobin A1c % 6.1 % (4.7-6.0) H 05/11/20 04:25 Lactic Acid 1.9 mmol/L (0.7-2.1) 05/11/20 01:01 Calcium 9.5 mg/dL (8.4-10.2) 05/14/20 06:35 Phosphorus 2.8 mg/dL (2.5-4.5) 05/10/20 18:36 Magnesium 2.6 mg/dL (1.6-2.3) H 05/10/20 18:36 Total Bilirubin 1.2 mg/dL (0.2-1.3) 05/13/20 05:51 Direct Bilirubin 0.5 mg/dL (0.0-0.4) H 05/13/20 05:51 Neonat Total Bilirubin Not Reportable 05/13/20 05:51 Neonat Direct Bilirubin Not Reportable 05/13/20 05:51 Neonat Indirect Bili Not Reportable 05/13/20 05:51 AST 36 U/L (17-59) 05/13/20 05:51 ALT 22 U/L (<50) 05/13/20 05:51 Alkaline Phosphatase 59 U/L (38-126) 05/13/20 05:51 Ammonia < 8.7 umol/L (9-33) L 05/10/20 22:05 Creatine Kinase 125 U/L (55-170) 05/13/20 05:51 CK-MB (CK-2) 0.66 ng/mL (<4.55) 05/13/20 05:51 Troponin I 0.063 ng/mL 05/13/20 05:51 NT-Pro-B Natriuret Pep 1220 pg/mL (<125) H 05/14/20 06:35 Total Protein 6.4 g/dL (6.3-8.2) 05/13/20 05:51 Albumin 3.1 g/dL (3.5-5.0) L 05/13/20 05:51 Triglycerides 83 mg/dL (<150) 05/11/20 04:25 Cholesterol 151.56 mg/dL (0-200) 05/11/20 04:25 LDL Cholesterol Direct 82 mg/dL (<100) 05/11/20 04:25 VLDL Cholesterol 17.0 mg/dL (10-31) 05/11/20 04:25 HDL Cholesterol 48 mg/dL (>40) 05/11/20 04:25 Amylase 67 U/L (30-110) 05/10/20 18:36 Lipase 132.7 U/L (23-300) 05/10/20 18:36 EGFR Cancelled 05/10/20 17:55 TSH 1.01 uIU/mL (0.47-4.68) 05/10/20 18:36 Free T4 1.82 ng/dL (0.78-2.19) 05/10/20 18:36 Urine Color YELLOW 05/19/20 12:52 Urine Appearance SLIGHTLY-CLOUDY 05/19/20 12:52 Urine pH 7.0 (5.0-9.0) 05/19/20 12:52 Ur Specific [place] 1.013 05/19/20 12:52 Urine Protein 30 mg/dL (NEGATIVE) H 05/19/20 12:52 Urine Glucose (UA) NEGATIVE mg/dL (NEGATIVE) 05/19/20 12:52 Urine Ketones NEGATIVE mg/dL (NEGATIVE) 05/19/20 12:52 Urine Blood MODERATE (NEGATIVE) H 05/19/20 12:52 Urine Nitrite NEGATIVE (NEGATIVE) 05/19/20 12:52 Urine Nitrite (Reflex) NEGATIVE (NEGATIVE) 05/10/20 20:45 Urine Bilirubin NEGATIVE (NEGATIVE) 05/19/20 12:52 Urine Urobilinogen 2.0 mg/dL (<2.0) H 05/19/20 12:52 Ur Leukocyte Esterase LARGE (NEGATIVE) H 05/19/20 12:52 Leukocyte Esterase Rfl NEGATIVE (NEGATIVE) 05/10/20 20:45 Urine WBC (Auto) 124 /HPF 05/19/20 12:52 Urine RBC (Auto) 15 /HPF 05/19/20 12:52 U Hyaline Cast (Auto) 12 /LPF 05/16/20 13:45 Urine Bacteria (Auto) 1+ /HPF 05/19/20 12:52 Urine WBC (Reflex) 1 /HPF 05/10/20 20:45 Squamous Epi Cells Auto 1 /HPF 05/19/20 12:52 Urine Mucus (Auto) RARE /LPF 05/14/20 05:43 Urine Ascorbic Acid NEGATIVE (NEGATIVE) 05/19/20 12:52 Urine Opiates Screen NEGATIVE 05/10/20 20:45 Urine Methadone Screen NEGATIVE 05/10/20 20:45 Ur Barbiturates Screen NEGATIVE 05/10/20 20:45 Ur Phencyclidine Scrn NEGATIVE 05/10/20 20:45 Ur Amphetamines Screen NEGATIVE 05/10/20 20:45 U Benzodiazepines Scrn NEGATIVE 05/10/20 20:45 Urine Cocaine Screen NEGATIVE 05/10/20 20:45 U Marijuana (THC) Screen NEGATIVE 05/10/20 20:45 COVID-19 Source See comment 05/11/20 00:30 COVID-19 ([facility]) Not Detected (Not Detect) 05/11/20 00:30 05/10/20 05/10/20 05/10/20 17:55 18:36 22:20 CK-MB (CK-2) 1.06 Troponin I Cancelled 0.145 0.164 NT-Pro-B Natriuret Pep 2130 H 05/11/20 05/11/20 05/13/20 04:25 12:08 05:51 CK-MB (CK-2) 1.05 1.15 0.66 Troponin I 0.134 0.105 0.063 NT-Pro-B Natriuret Pep 05/14/20 06:35 CK-MB (CK-2) Troponin I NT-Pro-B Natriuret Pep 1220 H Impressions: Chest X-Ray 05/10/20 18:08 IMPRESSION: Increased interstitial and alveolar opacities throughout both lungs. Small bilateral pleural effusions. Plan Health Concerns: Medication and dietary restriction compliance . High risk for readmission. Plan of Treatment: Emphasized need for medication and dietary restriction compliance. Goals: Reduce readmission risk. Stroke Is this a Stroke Patient?: No Acute Heart Failure Is this a Heart Failure Patient?: No
== END 2020-05-21 17:08 | disposition home health service (06) | DRG 291 ==
LOC: ER 17:30 → EH 20:41 → 3W 05-11 16:21 → 3S 05-12 12:44
PROVIDERS: ADMIT Internal Medicine Geriatric Medicine; ATTEND Internal Medicine Geriatric Medicine
PROC: B24BZZZ Ultrasonography of Heart with Aorta (ICD-10-PCS; principal; 2020-05-12)
PROC: 3E02340 Introduction of Influenza Vaccine into Muscle, Percutaneous Approach (ICD-10-PCS; 2020-05-21)
DX: I11.0 Hypertensive heart disease with heart failure (principal); J96.02 Acute respiratory failure with hypercapnia; E66.2 Morbid (severe) obesity with alveolar hypoventilation; Z68.43 Body mass index [BMI] 50.0-59.9, adult; I50.41 Acute combined systolic (congestive) and diastolic (congestive) heart failure; J44.9 Chronic obstructive pulmonary disease, unspecified; E11.9 Type 2 diabetes mellitus without complications; R79.89 Other specified abnormal findings of blood chemistry; I89.0 Lymphedema, not elsewhere classified; F17.210 Nicotine dependence, cigarettes, uncomplicated; Z79.51 Long term (current) use of inhaled steroids; Z20.828 Contact with and (suspected) exposure to other viral communicable diseases; Z91.041 Radiographic dye allergy status; Z91.14 Patient's other noncompliance with medication regimen; Z91.81 History of falling; Z23 Encounter for immunization
CPT/HCPCS: 36415; 71045; 80048; 80053; 80061; 80307; 81001; 82140; 82150; 82550; 82553; 82803; 82962; 83036; 83605; 83690; 83735; 83880; 84100; 84439; 84443; 84484; 85025; 85027; 85610; 85730; 87040; 87086; 87088; 87186; 87635; 90471; 90686; 90715; 93005; 93010; 93306; 94660; 96374; 99285; C9803; G0008; J1644; J1650; J1815; J1940; J3490